=== PATIENT | female | born 1945 | race African-American/Black ===

== ENCOUNTER 2016-09-18 10:45 | Emergency (ER) | payer MEDICARE, OTHER ==
[2016-09-18] MEDS ORDERED: ASPIRIN 81 MG TABLET, CHEWABLE PO ONE (10:59)
--- NOTE | 2016-09-18 11:03 | ER Document Report ---
ED Medical Screen (RME) - General Chief Complaint: Headache Stated Complaint: HEAD PAIN Mode of Arrival: Ambulatory Information source: Patient Notes: 70 y/o F presents to ED c/o fatigue, light headedness, and chest tightness since last night. Reports hx of chf and htn. I have greeted and performed a rapid initial assessment of this patient. A comprehensive ED assessment and evaluation of the patient, analysis of test results and completion of the medical decision making process will be conducted by additional ED providers. TRAVEL OUTSIDE OF THE [place] IN LAST 30 DAYS: No - Related Data Allergies/Adverse Reactions: No Known Allergies Allergy (Verified 09/18/16 10:57) Past Medical History - Social History Chew tobacco use (# tins/day): No Frequency of alcohol use: None Drug Abuse: None - Past Medical History Cardiac Medical History: Reports: Hx Hypertension Renal/ Medical History: Denies: Hx Peritoneal Dialysis Past Surgical History: Reports: Hx Hysterectomy, Hx Orthopedic Surgery - bilateral knee replacement, Hx Tubal Ligation - Immunizations Hx Diphtheria, Pertussis, Tetanus Vaccination: Yes Physical Exam - Vital signs Vitals: Temp Pulse Resp BP Pulse Ox 97.6 F 65 20 163/67 H 100 09/18/16 10:51 09/18/16 10:51 09/18/16 10:51 09/18/16 10:51 09/18/16 10:51 - General General appearance: Appears well, Alert In distress: None - Respiratory Respiratory status: No respiratory distress Breath sounds: Normal - Cardiovascular Rhythm: Regular Pulses: Normal: Radial Normal capillary refill: Yes Course - Vital Signs Vital signs: Temp Pulse Resp BP Pulse Ox 97.6 F 65 20 163/67 H 100 09/18/16 10:51 09/18/16 10:51 09/18/16 10:51 09/18/16 10:51 09/18/16 10:51
[2016-09-18 11:38] LABS: ABSOLUTE BASOPHILS # (AUTO) 0.1 10^3/uL (0.0-0.2); ABSOLUTE EOSINOPHILS # (AUTO) 0.1 10^3/uL (0.0-0.6); ABSOLUTE LYMPHOCYTES (AUTO) 2.2 10^3/uL (0.5-4.7); ABSOLUTE MONOCYTES (AUTO) 0.5 10^3/uL (0.1-1.4); ABSOLUTE NEUT (AUTO) 1.9 10^3/uL (1.7-8.2); BASOPHILS % (AUTO) 1.1 % (0-2); EOSINOPHILS % (AUTO) 2.9 % (0-6); HEMATOCRIT 34.2 % (36.0-47.0); HEMOGLOBIN 11.7 g/dL (12.0-15.5); HGB HCT DIFFERENCE 0.9; MEAN CORPUSCULAR HEMOGLOBIN 33.8 pg (27.0-33.4); MEAN CORPUSCULAR HGB CONC 34.3 g/dL (32.0-36.0); MEAN CORPUSCULAR VOLUME 99 fl (80-97); MONOCYTES % (AUTO) 10.4 % (3-13); RED BLOOD COUNT 3.48 10^6/uL (3.72-5.28); RED CELL DISTRIBUTION WIDTH 13.1 % (11.5-14.0); SEGMENTED NEUTROPHILS % (AUTO) 39.6 % (42-78); WHITE BLOOD COUNT 4.8 10^3/uL (4.0-10.5)
[2016-09-18 11:41] LABS: APPEARANCE,URINE SLIGHTLY-CLOUDY; BILIRUBIN,URINE NEGATIVE (NEGATIVE); GLUCOSE, URINE NEGATIVE (NEGATIVE); KETONES,URINE NEGATIVE (NEGATIVE); LEUKOCYTE ESTERASE,URINE NEGATIVE (NEGATIVE); NITRITE,URINE NEGATIVE (NEGATIVE); PROTEIN,URINE NEGATIVE (NEGATIVE); URINE SPECIFIC GRAVITY 1.012; UROBILINOGEN,URINE NEGATIVE mg/dL (<2.0)
[2016-09-18 11:50] LABS: ALANINE AMINOTRANSFERASE 32 U/L (9-52); ALBUMIN 4.4 g/dL (3.5-5.0); ALKALINE PHOSPHATASE 69 U/L (38-126); ANION GAP 9 (5-19); ASPARTATE AMINO TRANSFERASE 27 U/L (14-36); BILIRUBIN,TOTAL 0.5 mg/dL (0.2-1.3); BLOOD UREA NITROGEN 19 mg/dL (7-20); CALCIUM 10.7 mg/dL (8.4-10.2); CARBON DIOXIDE 30 mmol/L (22-30); CHLORIDE 101 mmol/L (98-107); CREATINE KINASE 61 U/L (30-135); CREATININE RESULT 0.72 mg/dL (0.52-1.25); GLUCOSE 94 mg/dL (75-110); POTASSIUM 4.2 mmol/L (3.6-5.0); SODIUM 140.2 mmol/L (137-145); TOTAL PROTEIN 7.2 g/dL (6.3-8.2)
[2016-09-18 12:00] LABS: CREATINE KINASE MB 0.95 ng/mL (<4.55)
[2016-09-18 12:01] LABS: TROPONIN I < 0.012 ng/mL
--- NOTE | 2016-09-18 14:32 | ER Document Report ---
ED General - General Chief Complaint: Headache Stated Complaint: HEAD PAIN Time seen by provider: 14:28 Mode of Arrival: Ambulatory Information source: Patient Notes: Patient is a pleasant 70-year-old female with a history of hypertension, CHF and syncope in the past who presents to the emergency room after an episode last night of dizziness, near syncope associated with a mild headache. Patient denies any fever, chills, photophobia, neck stiffness, sore throat or chest pain. Patient states she is followed by a personal banking officer that if new [employer] and that she's had some changes in her medicines lately. She denies any dyspnea on exertion or shortness of breath. She states she "saw stars" last night and she thought she was going to faint and was able make it over to the bed. She states she does not feel that it" today. She describes feeling a little dizzy today and having a mild headache. TRAVEL OUTSIDE OF THE [place] IN LAST 30 DAYS: No - HPI Onset: Yesterday Onset/Duration: Gradual Quality of pain: No pain Severity: None Pain Level: Denies Associated symptoms: denies: Chills, Fever Exacerbated by: Denies Relieved by: Denies Similar symptoms previously: Yes Recently seen / treated by doctor: Yes - Related Data Allergies/Adverse Reactions: No Known Allergies Allergy (Verified 09/18/16 10:57) Past Medical History - General Information source: Patient - Social History Smoking Status: Never Smoker Chew tobacco use (# tins/day): No Frequency of alcohol use: None Drug Abuse: None Lives with: Family Family History: Reviewed & Not Pertinent Patient has suicidal ideation: No Patient has homicidal ideation: No - Past Medical History Cardiac Medical History: Reports: Hx Congestive Heart Failure, Hx Hypertension Renal/ Medical History: Denies: Hx Peritoneal Dialysis Past Surgical History: Reports: Hx Hysterectomy, Hx Orthopedic Surgery - bilateral knee replacement, Hx Tubal Ligation - Immunizations Hx Diphtheria, Pertussis, Tetanus Vaccination: Yes Review of Systems - Review of Systems Notes: Review of systems: Constitutional: Denies fever, chills. EENT: Denies ear pain, sinus tenderness, throat pain, throat swelling. Cardiovascular: See H&P. Denies chest pain, palpitations, dyspnea or edema. Respiratory: Denies wheezing, cough, hemoptysis. Abdomen: Denies abdominal pain, nausea, vomiting, diarrhea. Denies BRBPR or melena. Genitourinary: Denies dysuria, pyuria, hematuria, flank pain. Musculoskeletal: denies joint pain or swelling, denies back pain. Neurologic: Denies headache, photophobia, neck stiffness, weakness. Denies loss of bowel or bladder function. Denies saddle anesthesia. Skin: Denies rash, lesions. Physical Exam - Vital signs Vitals: Temp Pulse Resp BP Pulse Ox 97.6 F 65 20 163/67 H 100 09/18/16 10:51 09/18/16 10:51 09/18/16 10:51 09/18/16 10:51 09/18/16 10:51 Notes: Physical exam: GENERAL: 70-year-old female, alert and oriented 3, no acute distress. HEAD: Atraumatic, normocephalic. EYES: Pupils equal round and reactive to light, extraocular movements intact, sclera anicteric, conjunctiva are normal. ENT: TMs normal, nares patent, oropharynx clear without exudates. Moist mucous membranes. NECK: Normal range of motion, supple without lymphadenopathy or JVD. LUNGS: Breath sounds clear to auscultation bilaterally and equal. No wheezes rales or rhonchi. HEART: Regular rate and rhythm without murmurs, rubs or gallops. ABDOMEN: Soft, normoactive bowel sounds. No tenderness to palpation. No guarding, no rebound. No masses appreciated. EXTREMITIES: Normal range of motion, no pitting or edema. No clubbing or cyanosis. NEUROLOGICAL: Cranial nerves II through XII grossly intact. Normal speech, motor 5 over 5, cerebellar grossly intact, reflexes symmetrical. PSYCH: Normal mood, normal affect. SKIN: Warm, Dry, normal turgor, no rashes or lesions noted. Course - Vital Signs Vital signs: Temp Pulse Resp BP Pulse Ox 97.6 F 65 18 112/76 100 09/18/16 10:51 09/18/16 10:51 09/18/16 16:01 09/18/16 16:01 09/18/16 16:01 - Laboratory Result Diagrams: 09/18/16 11:22 09/18/16 11:22 Laboratory results interpreted by me: 09/18/16 09/18/16 09/18/16 11:22 11:22 11:22 RBC 3.48 L Hgb 11.7 L Hct 34.2 L MCV 99 H MCH 33.8 H Seg Neutrophils % 39.6 L Lymphocytes % 46.0 H Calcium 10.7 H Urine Ascorbic Acid 40 H - Diagnostic Test Radiology reviewed: Image reviewed, Reports reviewed - Chest x-ray shows no infiltrates - EKG Interpretation by Me Rate: Normal Rhythm: NSR - EKG shows normal sinus rhythm with a ventricular rate of 61, there is a left anterior hemiblock with poor R-wave progression. There is no acute ST-T wave changes. The ECG is unchanged compared with EKG from 2014. Discharge - Discharge Clinical Impression: dizziness/near syncope Condition: Stable Disposition: HOME, SELF-CARE Additional Instructions: Recommendations: Continue current medicines. Wait yourself everyday at the same time: Keeping good tabs on the way as this is a good indicator of fluid status. You are on a diuretic for congestive heart failure. Weight gain is often times canvas products sales representative of fluid buildup and can make the congestive heart failure worse and he may be short of breath with exertion. Weight loss is sometimes canvas products sales representative of mild dehydration and can lead to increased dizziness or feeling faint when you stand up. Bring a copy of today's labs with you to your personal banking officer. Return to the emergency room for any chest pain, shortness of breath or any concerns he getting worse. Referrals: SARAH JOHNSON PA-C [Primary Care Provider] - Follow up as needed
[2016-09-18 16:34] VITALS: BP 112/76
--- NOTE | 2016-09-18 16:35 | EKG REPORT ---
SEVERITY:- ABNORMAL ECG - SINUS RHYTHM FIRST DEGREE AV BLOCK LEFT BUNDLE BRANCH BLOCK : Confirmed by: Harriet Guerra MD 18-Sep-2016 16:35:00
== END 2016-09-18 16:20 | disposition home or self-care (01) ==
LOC: ER 10:45
DX: R55 Syncope and collapse (principal); R51 Headache; I10 Essential (primary) hypertension; Z86.79 Personal history of other diseases of the circulatory system
CPT/HCPCS: 93005; 36415; 99284; 82553; 82550; 85025; 80053; 81001; 84484; 71020; 93010; A9270

== ENCOUNTER → 2016-11-21 | Outpatient (CLI) | payer MEDICARE, OTHER | LOC: WI 07:06 | PROVIDERS: ATTEND Physician Assistant | DX: Z12.31 Encounter for screening mammogram for malignant neoplasm of breast (principal) | CPT/HCPCS: 77067; G0202 ==

== ENCOUNTER 2017-03-17 16:12 | Emergency (ER) | payer MEDICARE ==
[2017-03-17 17:04] VITALS: BP 141/79
--- NOTE | 2017-03-17 17:14 | ER Document Report ---
ED Respiratory Problem - General Chief Complaint: Shortness Of Breath Stated Complaint: SHORTNESS OF BREATH AND DIZZINESS Time Seen by Provider: 03/17/17 16:22 Mode of Arrival: Ambulatory Information source: Patient TRAVEL OUTSIDE OF THE [place] IN LAST 30 DAYS: No - HPI Patient complains to provider of: Short of breath Onset: Other - 2-3 days Duration: Worse/persistent Context: Hx CHF Short of Breath: Mild Associated symptoms: Extertional dyspnea Similar symptoms previously: Yes Recently seen / treated by doctor: No Notes: Patient is a 71-year-old female who presents to the emergency room complaining of 2-3 day history of lightheadedness with sensation of "film over my eyes", dyspnea on exertion, she denies any chest pain, no cough, cold or congestion, no fever or chills, no nausea, vomiting or diarrhea, reports a history of similar symptoms a few months ago and states that she was evaluated in the emergency room and discharged with no abnormal findings - Related Data Allergies/Adverse Reactions: No Known Allergies Allergy (Verified 09/18/16 10:57) Past Medical History - General Information source: Patient - Social History Smoking Status: Former Smoker Family History: Reviewed & Not Pertinent - Past Medical History Cardiac Medical History: Reports: Hx Congestive Heart Failure, Hx Heart Attack, Hx Hypertension Renal/ Medical History: Denies: Hx Peritoneal Dialysis Past Surgical History: Reports: Hx Cardiac Catheterization, Hx Hysterectomy, Hx Orthopedic Surgery - bilateral knee replacement, Hx Tubal Ligation - Immunizations Hx Diphtheria, Pertussis, Tetanus Vaccination: Yes Review of Systems - Review of Systems Constitutional: No symptoms reported EENT: No symptoms reported Cardiovascular: See HPI Respiratory: See HPI Gastrointestinal: No symptoms reported Genitourinary: No symptoms reported Female Genitourinary: No symptoms reported Musculoskeletal: No symptoms reported Skin: No symptoms reported Hematologic/Lymphatic: No symptoms reported Neurological/Psychological: No symptoms reported -: Yes All other systems reviewed and negative Physical Exam - Vital signs Vitals: Resp 13 03/17/17 16:29 Interpretation: Normal - General General appearance: Appears well, Alert - HEENT Head: Normocephalic, Atraumatic Eyes: Normal Pupils: PERRL - Respiratory Respiratory status: No respiratory distress Chest status: Nontender Breath sounds: Normal Chest palpation: Normal - Cardiovascular Rhythm: Regular Heart sounds: Normal auscultation Murmur: No - Abdominal Inspection: Obese Distension: No distension Bowel sounds: Normal Tenderness: Nontender Organomegaly: No organomegaly - Back Back: Normal, Nontender - Extremities General upper extremity: Normal inspection, Nontender, Normal color, Normal ROM , Normal temperature General lower extremity: Normal inspection, Nontender, Normal color, Normal ROM , Normal temperature, Normal weight bearing. No: Jhonathan's sign - Neurological Neuro grossly intact: Yes Cognition: Normal Orientation: AAOx4 Porter Coma Scale Eye Opening: Spontaneous Porter Coma Scale Verbal: Oriented Porter Coma Scale Motor: Obeys Commands Porter Coma Scale Total: 15 Speech: Normal Motor strength normal: LUE, RUE, LLE, RLE Sensory: Normal - Psychological Associated symptoms: Normal affect, Normal mood - Skin Skin Temperature: Warm Skin Moisture: Dry Skin Color: Normal Course - Re-evaluation Re-evalutation: 03/17/17 18:48 Lab and imaging findings were discussed with patient at bedside which are unremarkable, EKG is unchanged from previous one, patient's symptoms have been going on for the past few days, without any abnormalities on labs are in and patient will be discharged with instructions to follow-up with her primary care provider 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 return if any additional concerns, patient acknowledges understanding and agreement with this plan - Vital Signs Vital signs: Temp Pulse Resp BP Pulse Ox 97.7 F 59 L 15 141/79 H 100 03/17/17 16:52 03/17/17 16:52 03/17/17 17:01 03/17/17 17:01 03/17/17 17:01 - Laboratory Result Diagrams: 03/17/17 16:45 03/17/17 16:45 Laboratory results interpreted by me: 03/17/17 16:45 WBC 3.9 L RBC 3.56 L Hct 35.5 L MCV 100 H MCH 33.9 H Seg Neutrophils % 37.1 L Lymphocytes % 49.4 H Absolute Neutrophils 1.5 L - Diagnostic Test Radiology reviewed: Image reviewed, Reports reviewed - EKG Interpretation by Me EKG shows normal: Sinus rhythm Rate: Normal Rhythm: NSR [place]/QRS: LBBB, IVCD When compared to previous EKG there are: No significant change Discharge - Discharge Clinical Impression: Shortness of breath Condition: Stable Disposition: HOME, SELF-CARE Additional Instructions: Follow up with your primary care provider in one to 2 days. Return to the emergency room immediately if symptoms worsen or any additional concerns. Referrals: SARAH JOHNSON PA-C [Primary Care Provider] - Follow up as needed
[2017-03-17 17:21] LABS: ABSOLUTE EOSINOPHILS # (AUTO) 0.1 10^3/uL (0.0-0.6); ABSOLUTE LYMPHOCYTES (AUTO) 1.9 10^3/uL (0.5-4.7); ABSOLUTE MONOCYTES (AUTO) 0.4 10^3/uL (0.1-1.4); ABSOLUTE NEUT (AUTO) 1.5 10^3/uL (1.7-8.2); BASOPHILS % (AUTO) 1.3 % (0-2); EOSINOPHILS % (AUTO) 2.7 % (0-6); HEMATOCRIT 35.5 % (36.0-47.0); HEMOGLOBIN 12.1 g/dL (12.0-15.5); HGB HCT DIFFERENCE 0.8; LYMPHOCYTES % (AUTO) 49.4 % (13-45); MEAN CORPUSCULAR HEMOGLOBIN 33.9 pg (27.0-33.4); MEAN CORPUSCULAR HGB CONC 33.9 g/dL (32.0-36.0); MEAN CORPUSCULAR VOLUME 100 fl (80-97); MONOCYTES % (AUTO) 9.5 % (3-13); RED BLOOD COUNT 3.56 10^6/uL (3.72-5.28); SEGMENTED NEUTROPHILS % (AUTO) 37.1 % (42-78); WHITE BLOOD COUNT 3.9 10^3/uL (4.0-10.5)
[2017-03-17 17:27] LABS: APPEARANCE,URINE CLEAR; BILIRUBIN,URINE NEGATIVE (NEGATIVE); GLUCOSE, URINE NEGATIVE (NEGATIVE); KETONES,URINE NEGATIVE (NEGATIVE); LEUKOCYTE ESTERASE,URINE NEGATIVE (NEGATIVE); NITRITE,URINE NEGATIVE (NEGATIVE); PROTEIN,URINE NEGATIVE (NEGATIVE); URINE SPECIFIC GRAVITY 1.006; UROBILINOGEN,URINE NEGATIVE mg/dL (<2.0)
--- NOTE | 2017-03-17 17:27 | RADIOLOGY REPORT (SQ) ---
EXAM DESCRIPTION: CHEST PA/LAT COMPLETED DATE/TIME: 03/17/2017 5:16 pm REASON FOR STUDY: db COMPARISON: 09/18/2016 EXAM PARAMETERS: NUMBER OF VIEWS: two views TECHNIQUE: Digital Frontal and Lateral radiographic views of the chest acquired. RADIATION DOSE: NA LIMITATIONS: none FINDINGS: LUNGS AND PLEURA: No new opacities, masses or pneumothorax. No pleural effusion. MEDIASTINUM AND HILAR STRUCTURES: No masses or contour abnormalities. HEART AND VASCULAR STRUCTURES: Heart stable in size. No evidence for failure. BONES: No acute findings. HARDWARE: None in the chest. OTHER: No other significant finding. IMPRESSION: NO ACUTE CARDIOPULMONARY BY CHRONIC UNCHANGED FROM PRIOR STUDY. TECHNICAL DOCUMENTATION: JOB ID: [id number] [employer]- All Rights Reserved
[2017-03-17 17:37] LABS: ALANINE AMINOTRANSFERASE 31 U/L (9-52); ALBUMIN 4.2 g/dL (3.5-5.0); ALKALINE PHOSPHATASE 70 U/L (38-126); ANION GAP 7 (5-19); ASPARTATE AMINO TRANSFERASE 23 U/L (14-36); BILIRUBIN,DIRECT 0.4 mg/dL (0.0-0.4); BILIRUBIN,TOTAL 0.6 mg/dL (0.2-1.3); BLOOD UREA NITROGEN 16 mg/dL (7-20); CALCIUM 10.2 mg/dL (8.4-10.2); CARBON DIOXIDE 30 mmol/L (22-30); CHLORIDE 103 mmol/L (98-107); CREATINE KINASE 47 U/L (30-135); CREATININE RESULT 0.63 mg/dL (0.52-1.25); GLUCOSE 86 mg/dL (75-110); SODIUM 140.3 mmol/L (137-145); TOTAL PROTEIN 7.3 g/dL (6.3-8.2)
[2017-03-17 17:46] LABS: CREATINE KINASE MB 0.43 ng/mL (<4.55)
--- NOTE | 2017-03-17 21:11 | EKG REPORT ---
SEVERITY:- ABNORMAL ECG - SINUS RHYTHM FIRST DEGREE AV BLOCK NONSPECIFIC IVCD WITH LAD LEFT VENTRICULAR HYPERTROPHY : Confirmed by: Last Atwood 17-Mar-2017 21:10:27
== END 2017-03-17 18:59 | disposition home or self-care (01) ==
LOC: ER 16:12
DX: R06.02 Shortness of breath (principal); R06.09 Other forms of dyspnea; R42 Dizziness and giddiness; I44.7 Left bundle-branch block, unspecified; I25.2 Old myocardial infarction; I10 Essential (primary) hypertension
CPT/HCPCS: 36415; 71020; 80053; 81001; 82550; 82553; 83880; 84484; 85025; 93005; 93010; 99285

== ENCOUNTER → 2017-11-02 | Outpatient (CLI) | payer MEDICARE, OTHER ==
--- NOTE | 2017-11-03 08:15 | WOMENS IMAGING REPORT ---
EXAM DESCRIPTION: BILAT SCREENING MAMMO W/CAD COMPLETED DATE/TIME: 11/02/2017 8:32 am REASON FOR STUDY: SCREENING MAMMO Z12.31 ENCNTR SCREEN MAMMOGRAM FOR MALIGNANT NEOPLASM OF ERROL COMPARISON: Multiple since 2008 TECHNIQUE: Standard craniocaudal and mediolateral oblique views of each breast recorded using digita l acquisition. LIMITATIONS: None. FINDINGS: Findings present which are benign by mammographic criteria. No suspicious masses, calcifi cations or architectural distortion. Pertinent benign findings: Old far right upper outer quadrant scar with biopsy clip, unchanged. Read with the assistance of CAD. .[facility] - R2 Cenova Version 1.3 .[facility] - R2 Cenova Version 1.3 .[facility] - R2 Cenova Version 2.4 .[facility] [place] R2 Cenova Version 2.4 .[facility] - R2 Payroll And Benefits Assistant Version 9.2 Benign mammographic findings may include one or more of the following: Smooth masses, popcorn/rim/co arse calcifications, asymmetries, post-procedure changes, and lesions with long-standing stability. IMPRESSION: BENIGN MAMMOGRAPHIC FINDINGS. BIRADS 2 BREAST DENSITY: a. The breasts are almost entirely fatty. BIRAD: 2 BENIGN FINDING(S) RECOMMENDATION: ROUTINE SCREENING Please continue yearly screening in October 2018. Consider bilateral screening tomosynthesis COMMENT: The patient has been notified of the results by letter per SA requirements. Additional no tification policies are in place for contacting patient with suspicious or incomplete findings. Quality ID #225: The [employer] recommends an annual screening mammogram for women aged 40 years or over. This facility utilizes a reminder system to ensure that all patients receive reminder letters, and/or direct phone calls for appointments. This includes reminders for routine scr eening mammograms, diagnostic mammograms, or other Breast Imaging Interventions when appropriate. Th is patient will be placed in the appropriate reminder system. The [employer] (ACR) has developed recommendations for screening MRI of the breast s in certain patient populations, to be used in conjunction with mammography. Breast MRI surveillanc e may be appropriate for women with more than 20% lifetime risk of developing breast cancer as deter mined by genetic testing, significant family history of the disease, or history of mantle radiation f or Hodgkins Disease. ACR Practice Guidelines 2008. TECHNICAL DOCUMENTATION: FINDING NUMBER: (1) ASSESSMENT: (1) JOB ID: [id number] [employer]- All Rights Reserved Reading location - IP/workstation name: [email or web address]
== END ==
LOC: WI 07:59
PROVIDERS: ATTEND Physician Assistant Medical
DX: Z12.31 Encounter for screening mammogram for malignant neoplasm of breast (principal)
CPT/HCPCS: 77067

== ENCOUNTER → 2018-04-06 | Outpatient (CLI) | payer MEDICARE ==
--- NOTE | 2018-04-07 09:35 | RADIOLOGY REPORT (SQ) ---
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 RADIONUCLIDE AND DOSE: 9.5 mCi F18 FDG The route of agent administration: Intravenous FASTING BLOOD SUGAR: 103 mg/dl CONTRAST TYPE AND DOSE: No CT contrast given. TECHNIQUE: Blood glucose level was verified. Above dose of FDG was injected intravenously. 2-D seg mented attenuation correction images were obtained from the base of the skull to the midthighs. Nonc ontrast CT images were obtained for attenuation correction and fusion with emission images. CT image s were performed without oral or intravenous contrast and are not sensitive for parenchymal lesions. A series of overlapping emission PET images were obtained. Images reviewed and manipulated at [facility] work station by the radiologist. Images stored on PACS. LIMITATIONS: None. FINDINGS: HEAD AND NECK: No areas of abnormal metabolic activity in the soft tissues of the head and neck. CHEST: No areas of abnormal metabolic activity in the chest. ABDOMEN AND PELVIS: No areas of abnormal metabolic activity in the abdomen or pelvis. Expected physi ologic activity is present in the genitourinary system and bowel. PROXIMAL LOWER EXTREMITIES: No areas of abnormal metabolic activity in the soft tissues of the lower extremities. BONES: No significant abnormal metabolic activity in the visualized skeleton. ADDITIONAL CT FINDINGS: Non hypermetabolic expansile lesion left S1 neural foramen previously imaged with CT and MRI at outside facility. Calcified uterine fibroids. OTHER: No other significant findings. IMPRESSION: Non hypermetabolic left sacral lesion. TECHNICAL DOCUMENTATION: JOB ID: [id number]- All Rights Reserved Reading location - IP/workstation name: [email or web address]
== END ==
LOC: RAD 17:33
PROVIDERS: ATTEND Internal Medicine
DX: C41.9 Malignant neoplasm of bone and articular cartilage, unspecified (principal)
CPT/HCPCS: 78815; A9552

== ENCOUNTER → 2018-11-24 | Outpatient (CLI) | payer MEDICARE, MEDICAID ==
--- NOTE | 2018-11-24 14:30 | WOMENS IMAGING REPORT ---
EXAM DESCRIPTION: 3D SCREENING MAMMO BILAT COMPLETED DATE/TIME: 11/24/2018 10:23 am REASON FOR STUDY: Z12.31 ROUTINE 3D BILATERAL SCREENING Z12.31 ENCNTR SCREEN MAMMOGRAM FOR MALIGNAN T NEOPLASM OF ERROL COMPARISON: Multiple since 2008 TECHNIQUE: Standard craniocaudal and mediolateral oblique views of each breast recorded using digita l acquisition and breast tomosynthesis. LIMITATIONS: None. FINDINGS: Findings present which are benign by mammographic criteria. No suspicious masses, calcific ations or architectural distortion. Pertinent benign findings: Old biopsy clip right axilla/tail of Mccoy. Stable benign bilateral manny st parenchymal calcifications. Read with the assistance of CAD. .[facility] - R2 Engineer Process Version 9.2 Benign mammographic findings may include one or more of the following: Smooth masses, popcorn/rim/coa rse calcifications, asymmetries, post-procedure changes, and lesions with long-standing stability. IMPRESSION: BENIGN MAMMOGRAPHIC FINDINGS. BIRADS 2 BREAST DENSITY: a. The breasts are almost entirely fatty. BIRAD: 2 BENIGN FINDING(S) RECOMMENDATION: ROUTINE SCREENING COMMENT: The patient has been notified of the results by letter per SA requirements. Additional no tification policies are in place for contacting patient with suspicious or incomplete findings. Quality ID #225: The [employer] recommends an annual screening mammogram for women aged 40 years or over. This facility utilizes a reminder system to ensure that all patients receive reminder letters, and/or direct phone calls for appointments. This includes reminders for routine scr eening mammograms, diagnostic mammograms, or other Breast Imaging Interventions when appropriate. Th is patient will be placed in the appropriate reminder system. TECHNICAL DOCUMENTATION: FINDING NUMBER: (1) ASSESSMENT: (1) JOB ID: [id number] [employer]- All Rights Reserved Reading location - IP/workstation name: [email or web address]-
== END ==
LOC: WI 09:54
PROVIDERS: ATTEND Physician Assistant
DX: Z12.31 Encounter for screening mammogram for malignant neoplasm of breast (principal)
CPT/HCPCS: 77063; 77067

== ENCOUNTER 2019-03-02 15:30 | Observation (INO) | payer MEDICARE, MEDICAID ==
--- NOTE | 2019-03-02 16:03 | ER Document Report ---
ED Medical Screen (RME) - General Chief Complaint: Chest Pain Stated Complaint: CHEST PAIN Time Seen by Provider: 03/02/19 15:59 Primary Care Provider: SARAH JOHNSON PA-C [Primary Care Provider] - Follow up as needed TRAVEL OUTSIDE OF THE [place]. IN LAST 30 DAYS: No - HPI Notes: 03/02/19 16:02 Patient is a 73-year-old female with a history of hypertension and obesity who presents complaining of having dull chest pain primarily when she ambulates as well as increased swelling to her legs bilaterally and increased dyspnea on exertion over the past week. Patient states that she really feels that when she is trying to do steps. Her discomfort does not radiate. She is otherwise able to eat and drink without the [place]. She is urinating normally. Denies drug allergies. She is not on any blood thinning medications. Denies any prolonged immobilization, distance travel, recent surgery/trauma, personal cancer history, hormone use, smoking, or previous DVT/PE. Denies DUFFY, fever, neck pain, URI, n/v/d, Abd pain, dysuria, back pain, or rash. I have treated and performed a rapid initial assessment of this patient. A comprehensive ED assessment and evaluation of the patient, analysis of test results and completion of medical decision making process will be conducted by additional ED providers. PHYSICAL EXAMINATION: GENERAL: Well-appearing, well-nourished and in no acute distress. A&Ox4. Answers questions appropriately. LUNGS: diminished at the base b/l. no retractions HEART: Regular rate and rhythm. Extremities: 1-2+ pitting edema to the b/l LE's (primarily 2+ to the ankles). NEUROLOGICAL: Normal speech. PSYCH: Normal mood, normal affect. - Related Data Allergies/Adverse Reactions: No Known Allergies Allergy (Verified 03/02/19 15:33) Past Medical History - Past Medical History Cardiac Medical History: Reports: Hx Congestive Heart Failure, Hx Heart Attack, Hx Hypertension Renal/ Medical History: Denies: Hx Peritoneal Dialysis Past Surgical History: Reports: Hx Cardiac Catheterization, Hx Hysterectomy, Hx Orthopedic Surgery - bilateral knee replacement, Hx Tubal Ligation - Immunizations Hx Diphtheria, Pertussis, Tetanus Vaccination: Yes Physical Exam - Vital signs Vitals: Temp Pulse Resp BP Pulse Ox 98.1 F 72 18 129/70 H 96 03/02/19 15:56 03/02/19 15:56 03/02/19 15:56 03/02/19 15:56 03/02/19 15:56 Course - Vital Signs Vital signs: Temp Pulse Resp BP Pulse Ox 98.1 F 72 18 129/70 H 96 03/02/19 15:56 03/02/19 15:56 03/02/19 15:56 03/02/19 15:56 03/02/19 15:56 Doctor's Discharge - Discharge Referrals: SARAH JOHNSON PA-C [Primary Care Provider] - Follow up as needed
--- NOTE | 2019-03-02 16:28 | RADIOLOGY REPORT (SQ) ---
EXAM DESCRIPTION: CHEST 2 VIEWS COMPLETED DATE/TIME: 03/02/2019 4:18 pm REASON FOR STUDY: CP COMPARISON: 03/17/2017 EXAM PARAMETERS: NUMBER OF VIEWS: two views TECHNIQUE: Digital Frontal and Lateral radiographic views of the chest acquired. RADIATION DOSE: NA LIMITATIONS: none FINDINGS: LUNGS AND PLEURA: No opacities, masses or pneumothorax. No pleural effusion. MEDIASTINUM AND HILAR STRUCTURES: No masses or contour abnormalities. HEART AND VASCULAR STRUCTURES: The heart size is borderline. There is no pulmonary edema. BONES: No acute findings. HARDWARE: None in the chest. OTHER: No other significant finding. IMPRESSION: Borderline cardiomegaly without pulmonary edema. TECHNICAL DOCUMENTATION: JOB ID: [id number] [employer]- All Rights Reserved Reading location - IP/workstation name: [email or web address]
[2019-03-02 16:47] LABS: ABSOLUTE EOSINOPHILS # (AUTO) 0.1 10^3/uL (0.0-0.6); ABSOLUTE LYMPHOCYTES (AUTO) 1.7 10^3/uL (0.5-4.7); ABSOLUTE MONOCYTES (AUTO) 0.3 10^3/uL (0.1-1.4); ABSOLUTE NEUT (AUTO) 1.6 10^3/uL (1.7-8.2); BASOPHILS % (AUTO) 1.1 % (0-2); EOSINOPHILS % (AUTO) 2.4 % (0-6); HEMATOCRIT 36.2 % (36.0-47.0); HEMOGLOBIN 12.2 g/dL (12.0-15.5); LYMPHOCYTES % (AUTO) 43.8 % (13-45); MEAN CORPUSCULAR HEMOGLOBIN 33.4 pg (27.0-33.4); MEAN CORPUSCULAR HGB CONC 33.7 g/dL (32.0-36.0); MEAN CORPUSCULAR VOLUME 99 fl (80-97); MONOCYTES % (AUTO) 9.1 % (3-13); PLATELET COUNT 253 10^3/uL (150-450); RED BLOOD COUNT 3.65 10^6/uL (3.72-5.28); SEGMENTED NEUTROPHILS % (AUTO) 43.6 % (42-78); TOTAL CELLS COUNTED % (AUTO) 100 %; WHITE BLOOD COUNT 3.8 10^3/uL (4.0-10.5)
[2019-03-02] MEDS ORDERED: ASPIRIN 325 MG TABLET PO ONE (16:57)
[2019-03-02 17:10] LABS: INTERNATIONAL RATION (INR) 1.04; PROTHROMBIN TIME 13.6 SEC (11.4-15.4)
[2019-03-02 17:11] LABS: PARTIAL THROMBOPLASTIN TIME 33.7 SEC (23.5-35.8)
[2019-03-02 17:15] LABS: NT PRO BNP 41 pg/mL (5-900)
[2019-03-02 17:18] LABS: TROPONIN I < 0.012 ng/mL
[2019-03-02 17:26] LABS: ALBUMIN 4.3 g/dL (3.5-5.0); ALKALINE PHOSPHATASE 67 U/L (38-126); ANION GAP 9 (5-19); ASPARTATE AMINO TRANSFERASE 23 U/L (14-36); BILIRUBIN,DIRECT 0.2 mg/dL (0.0-0.4); BILIRUBIN,TOTAL 0.4 mg/dL (0.2-1.3); BLOOD UREA NITROGEN 17 mg/dL (7-20); CALCIUM 10.2 mg/dL (8.4-10.2); CARBON DIOXIDE 28 mmol/L (22-30); CHLORIDE 103 mmol/L (98-107); GLUCOSE 97 mg/dL (75-110); POTASSIUM 4.3 mmol/L (3.6-5.0); TOTAL PROTEIN 7.3 g/dL (6.3-8.2)
--- NOTE | 2019-03-02 17:39 | ER Document Report ---
ED General - General Chief Complaint: Chest Pain Stated Complaint: CHEST PAIN Time Seen by Provider: 03/02/19 15:59 TRAVEL OUTSIDE OF THE [place] IN LAST 30 DAYS: No - HPI Notes: 73-year-old female with history of hypertension, obesity, congestive heart failure to the emergency department with complaints of progressively worsening chest pain on exertion with dyspnea. She states that she has been noticing this as she walks from her car to buildings. She states prior to this past week she has been able to do that without any problem. She states that it takes her several minutes for her to catch her breath and for the chest pain to dissipate. She states that she also gets acutely nauseated and diaphoretic when she is experiencing the chest pain with shortness of breath. She states that she has a history of CHF and "may have had a small heart attack at one point". She states that she was at [facility] about 3 to 4 years ago and had a clean cardiac cath. She states she has not had a stress test since. She is not on a blood thinner. She has not been taking aspirin daily. She does not smoke. There is family history of heart attacks on her mother side. She states that her mother at 65 with heart complications. Patient does state that she has been having some worsening bilateral leg swelling. She states that she has been taking her "water pills" from her physician every day. She states that when she was diagnosed with CHF before that she did not have chest pain with it. - Related Data Allergies/Adverse Reactions: No Known Allergies Allergy (Verified 03/02/19 15:33) Past Medical History - General Information source: Patient - Social History Smoking Status: Never Smoker Frequency of alcohol use: None Drug Abuse: None Family History: Reviewed & Not Pertinent Patient has suicidal ideation: No Patient has homicidal ideation: No - Past Medical History Cardiac Medical History: Reports: Hx Congestive Heart Failure, Hx Heart Attack, Hx Hypertension Renal/ Medical History: Denies: Hx Peritoneal Dialysis Past Surgical History: Reports: Hx Cardiac Catheterization, Hx Hysterectomy, Hx Orthopedic Surgery - bilateral knee replacement, Hx Tubal Ligation - Immunizations Hx Diphtheria, Pertussis, Tetanus Vaccination: Yes Review of Systems - Review of Systems Constitutional: denies: Chills, Fever EENT: No symptoms reported Cardiovascular: Chest pain, Dyspnea, Lightheaded, Edema. denies: Palpitations, Orthopnea, Syncope, Dizziness Physical Exam - Vital signs Vitals: Temp Pulse Resp BP Pulse Ox 98.1 F 72 18 129/70 H 96 03/02/19 15:56 03/02/19 15:56 03/02/19 15:56 03/02/19 15:56 03/02/19 15:56 Interpretation: Normal - General General appearance: Appears well, Alert In distress: None Notes: Morbidly obese - HEENT Head: Normocephalic, Atraumatic Eyes: Normal Pupils: PERRL - Respiratory Respiratory status: No respiratory distress Chest status: Nontender Breath sounds: Normal. No: Rales, Rhonchi, Stridor, Wheezing Chest palpation: Normal - Cardiovascular Notes: Bilateral 1-2+ pitting edema to lower extremities - Abdominal Inspection: Normal Distension: No distension Bowel sounds: Normal Tenderness: Nontender Organomegaly: No organomegaly - Back Back: Normal, Nontender - Neurological Neuro grossly intact: Yes Cognition: Normal Orientation: AAOx4 [place] Coma Scale Eye Opening: Spontaneous [place] Coma Scale Verbal: Oriented [place] Coma Scale Motor: Obeys Commands Gustavo Coma Scale Total: 15 Speech: Normal Motor strength normal: LUE, RUE, LLE, RLE Sensory: Normal - Psychological Associated symptoms: Normal affect, Normal mood - Skin Skin Temperature: Warm Skin Moisture: Dry Skin Color: Normal Course - Re-evaluation Re-evalutation: 03/02/19 Patient has a heart score of 4. She is concerning history for chest pain. Discussed with ER attending, Dr. Pack, and he agrees with the plan for admission. Discussed patient with physician branch assistant, Mari, and he agrees with plan for admission. He is aware patient's heart score as well as patient's history of present illness he is aware of unchanging EKG from prior he is aware first initial troponin is negative. He is aware of chest x-ray with cardiomegaly but no acute pulmonary edema. He is aware of aspirin given to patient. He is aware that patient is currently chest pain-free. Impression: Chest pain with exertional dyspnea, diaphoresis, nausea. Patient has heart score of 4 will need further trending of her troponins and further management for chest pain. Hospitalist team is excepted her onto their service. Patient agrees with the plan for admission. - Vital Signs Vital signs: Temp Pulse Resp BP Pulse Ox 98.1 F 72 15 115/67 98 03/02/19 15:56 03/02/19 15:56 03/02/19 17:01 03/02/19 17:00 03/02/19 17:01 - Laboratory Result Diagrams: 03/02/19 16:30 03/02/19 16:30 Laboratory results interpreted by me: 03/02/19 16:30 WBC 3.8 L RBC 3.65 L MCV 99 H Absolute Neutrophils 1.6 L - Diagnostic Test Radiology reviewed: Image reviewed, Reports reviewed - EKG Interpretation by Me EKG shows normal: Sinus rhythm Rate: Normal When compared to previous EKG there are: No significant change Additional EKG results interpreted by me: 03/02/19 No STEMI. First-degree AV block. LVH. There are no significant changes from prior on 03/17/2017 Discharge - Discharge Clinical Impression: Dyspnea on exertion Chest pain Qualifiers: Chest pain type: unspecified Qualified Code(s): R07.9 - Chest pain, unspecified Condition: Stable Disposition: ADMITTED INPATIENT Admitting Provider: Sen (Hospitalist) Unit Admitted: Telemetry
--- NOTE | 2019-03-02 17:40 | EKG REPORT ---
SEVERITY:- ABNORMAL ECG - SINUS RHYTHM FIRST DEGREE AV BLOCK LEFT BUNDLE BRANCH BLOCK : Confirmed by: Justus Basilio MD 02-Mar-2019 17:40:08
[2019-03-02] MEDS ORDERED: NITROGLYCERIN 0.4 MG/TAB 25 TAB/BOTTLE SL PRN (18:14)
[2019-03-02] MEDS ORDERED: MAG HYDROX/AL HYDROX/SIMETH SUSP 30 ML UDCUP PO PRN (18:14)
[2019-03-02] MEDS ORDERED: ACETAMINOPHEN 325 MG TABLET PO PRN (18:14)
[2019-03-02] MEDS ORDERED: ONDANSETRON HCL INJ/PF 4 MG/2 ML SDV IV PRN (18:14)
[2019-03-02] MEDS ORDERED: 1/2 NORMAL SALINE 1,000 ML IV PRN (18:14)
--- NOTE | 2019-03-02 18:44 | Progress Note Acknowledgement ---
Progress Note Acknowledgement Progess Note Acknowledgement: I, the undersigned member of the medical staff with appropriate privileges and with supervisory authority over [ PAC ], a dependent practice allied health professional, acknowledge that I have reviewed the progress notes entered on this patient, and in my professional judgment believe that the assessment made and/or any care evidenced was appropriate
--- NOTE | 2019-03-02 18:52 | PDOC H&P ---
History of Present Illness Admission Date/PCP: SARAH JOHNSON PA-C 03/02/2019 patient is admitted for chest pain. She states she has had it for a week now will come and go and is not really pain is more of a "ache" patient states that started over a week ago when she would just get short of breath with walking. Patient's friend who is in the room states is been going on longer than a week. Patient complains of: Chest pain over a week and duration. Patient also complains of some shortness of breath with exertion History of Present Illness: SARAH MONTOYA is a 73 year old female Past Medical History Cardiac Medical History: Reports: Congestive Heart Failure, Myocardial Infarction, Hypertension Pulmonary Medical History: Reports: None Past Surgical History Past Surgical History: Reports: Cardiac Catheterization, Hysterectomy, Orthopedic Surgery - bilateral knee replacement, Tubal Ligation Social History Smoking Status: Never Smoker Frequency of Alcohol Use: None Hx Recreational Drug Use: No Hx Prescription Drug Abuse: No Family History Family History: Reviewed & Not Pertinent Parental Family History Reviewed: No Children Family History Reviewed: No Sibling(s) Family History Reviewed.: No Medication/Allergy Home Medications: Celecoxib [Celebrex 200 mg Capsule] 200 mg PO BIDP PRN 07/16/14 Furosemide [Lasix 20 mg Tablet] 20 mg PO DAILYP PRN 07/16/14 Potassium Chloride 10 meq PO DAILYP PRN 07/16/14 Pregabalin [Lyrica 100 mg Capsule] 100 mg PO TID 07/16/14 Valsartan/Hydrochlorothiazide [Diovan Hct 160-12.5 mg Tab] 1 tab PO DAILY 09/26/14 Oxycodone HCl/Acetaminophen [Percocet 5-325 mg Tablet] 1 tab PO Q4H PRN #10 tablet 01/02/15 Allergies/Adverse Reactions: No Known Allergies Allergy (Verified 03/02/19 15:33) Review of Systems Constitutional: ABSENT: chills, fever(s), headache(s), weight gain, weight loss Eyes: ABSENT: visual disturbances Cardiovascular: PRESENT: chest pain, dyspnea on exertion Respiratory: ABSENT: cough, hemoptysis Gastrointestinal: ABSENT: abdominal pain, constipation, diarrhea, hematemesis, hematochezia, nausea, vomiting Neurological: ABSENT: abnormal gait, abnormal speech, confusion, dizziness, focal weakness, syncope Psychiatric: ABSENT: anxiety, depression, homidical ideation, suicidal ideation Physical Exam Vital Signs: Temp Pulse Resp BP Pulse Ox 98.1 F 72 15 115/67 98 03/02/19 15:56 03/02/19 15:56 03/02/19 17:01 03/02/19 17:00 03/02/19 17:01 Intake & Output 03/01/19 03/02/19 03/03/19 06:59 06:59 06:59 Weight 127.2 kg General appearance: PRESENT: no acute distress, well-developed, well-nourished, other - Patient has been pain-free now for over an hour Respiratory exam: PRESENT: clear to auscultation mony. ABSENT: rales, rhonchi, wheezes Cardiovascular exam: PRESENT: RRR. ABSENT: diastolic murmur, rubs, systolic murmur GI/Abdominal exam: PRESENT: normal bowel sounds, soft, other - Obese. ABSENT: distended, guarding, mass, organolmegaly, rebound, tenderness Neurological exam: PRESENT: alert, awake, oriented to person, oriented to place, oriented to time, oriented to situation, CN II-XII grossly intact. ABSENT: motor sensory deficit Psychiatric exam: PRESENT: appropriate affect, normal mood. ABSENT: homicidal ideation, suicidal ideation Results Laboratory Results: 03/02/19 16:30 03/02/19 16:30 03/02/19 03/02/19 16:30 16:30 WBC 3.8 L RBC 3.65 L Hgb 12.2 Hct 36.2 MCV 99 H MCH 33.4 MCHC 33.7 RDW 14.0 Plt Count 253 Seg Neutrophils % 43.6 Lymphocytes % 43.8 Monocytes % 9.1 Eosinophils % 2.4 Basophils % 1.1 Absolute Neutrophils 1.6 L Absolute Lymphocytes 1.7 Absolute Monocytes 0.3 Absolute Eosinophils 0.1 Absolute Basophils 0.0 Sodium 140.3 Potassium 4.3 Chloride 103 Carbon Dioxide 28 Anion Gap 9 BUN 17 Creatinine 0.64 Est GFR ( Amer) > 60 Est GFR (Non-Af Amer) > 60 Glucose 97 Calcium 10.2 Total Bilirubin 0.4 AST 23 Alkaline Phosphatase 67 Total Protein 7.3 Albumin 4.3 03/02/19 16:30 Troponin I < 0.012 NT-Pro-B Natriuret Pep 41 Impressions: Chest X-Ray 03/02/19 16:00 IMPRESSION: Borderline cardiomegaly without pulmonary edema. Assessment and Plan - Diagnosis (1) Chest pain Qualifiers: Chest pain type: unspecified Qualified Code(s): R07.9 - Chest pain, unspecified Is this a current diagnosis for this admission?: Yes Plan: She will be admitted for serial troponins. Cardiology consult will be made tomorrow. Patient has been having her shortness of breath and chest pain for over a week now. Patient has a questionable history of a previous [place] 2 years ago. (2) Left bundle branch block (LBBB) on electrocardiogram Is this a current diagnosis for this admission?: Yes Plan: Patient had an EKG in 2017, compared to tonight there is no change, no acute findings (3) Essential hypertension Is this a current diagnosis for this admission?: Yes Plan: Patient was placed on her home meds valsartan HCTZ blood pressures well controlled tonight in the ED (4) Morbid obesity with BMI of 45.0-49.9, adult Is this a current diagnosis for this admission?: Yes Plan: Patient weighs 127 kg - Time Time Spent with patient: 35 or more minutes Medications reviewed and adjusted accordingly: Yes Anticipated discharge: Home Within: within 48 hours
[2019-03-02] MEDS ORDERED: MORPHINE SULFATE 10 MG/ML INJ IV PRN (18:57)
[2019-03-02] MEDS: OXYCODONE-ACETAMINOPHEN 5-325 MG TABLET PO SCH (19:16)
[2019-03-02 20:38] LABS: APPEARANCE,URINE CLEAR; BILIRUBIN,URINE NEGATIVE (NEGATIVE); COLOR,URINE YELLOW; GLUCOSE, URINE NEGATIVE (NEGATIVE); KETONES,URINE TRACE mg/dL (NEGATIVE); LEUKOCYTE ESTERASE,URINE NEGATIVE (NEGATIVE); NITRITE,URINE NEGATIVE (NEGATIVE); PROTEIN,URINE NEGATIVE (NEGATIVE); URINE SPECIFIC GRAVITY 1.017; UROBILINOGEN,URINE NEGATIVE mg/dL (<2.0)
[2019-03-02] MEDS: POTASSIUM CHLORIDE 20 MEQ PACKET PO SCH (21:12)
[2019-03-02] MEDS: ENOXAPARIN SODIUM INJ 120 MG/0.8 ML DISP.SYRIN SUBCUT SCH (21:13)
[2019-03-02] MEDS ORDERED: ATORVASTATIN CALCIUM 20 MG TABLET PO SCH (22:00)
[2019-03-02 23:07] LABS: CREATINE KINASE MB 0.46 ng/mL (<4.55)
[2019-03-02 23:11] LABS: TROPONIN I < 0.012 ng/mL
[2019-03-03] MEDS: OXYCODONE-ACETAMINOPHEN 5-325 MG TABLET PO SCH ×3 (00:59→11:51)
[2019-03-03 06:04] LABS: ABSOLUTE EOSINOPHILS # (AUTO) 0.1 10^3/uL (0.0-0.6); ABSOLUTE LYMPHOCYTES (AUTO) 1.6 10^3/uL (0.5-4.7); ABSOLUTE MONOCYTES (AUTO) 0.4 10^3/uL (0.1-1.4); ABSOLUTE NEUT (AUTO) 1.2 10^3/uL (1.7-8.2); BASOPHILS % (AUTO) 0.8 % (0-2); EOSINOPHILS % (AUTO) 3.9 % (0-6); HEMATOCRIT 33.6 % (36.0-47.0); HEMOGLOBIN 11.5 g/dL (12.0-15.5); MEAN CORPUSCULAR HEMOGLOBIN 33.9 pg (27.0-33.4); MEAN CORPUSCULAR HGB CONC 34.3 g/dL (32.0-36.0); MEAN CORPUSCULAR VOLUME 99 fl (80-97); MONOCYTES % (AUTO) 11.9 % (3-13); PLATELET COUNT 219 10^3/uL (150-450); RED CELL DISTRIBUTION WIDTH 13.6 % (11.5-14.0); SEGMENTED NEUTROPHILS % (AUTO) 36.4 % (42-78); TOTAL CELLS COUNTED % (AUTO) 100 %; WHITE BLOOD COUNT 3.4 10^3/uL (4.0-10.5)
[2019-03-03 06:19] LABS: ALBUMIN 3.6 g/dL (3.5-5.0); ALKALINE PHOSPHATASE 53 U/L (38-126); ANION GAP 6 (5-19); ASPARTATE AMINO TRANSFERASE 19 U/L (14-36); BILIRUBIN,DIRECT 0.1 mg/dL (0.0-0.4); BILIRUBIN,TOTAL 0.4 mg/dL (0.2-1.3); BLOOD UREA NITROGEN 15 mg/dL (7-20); CALCIUM 9.7 mg/dL (8.4-10.2); CARBON DIOXIDE 28 mmol/L (22-30); CHLORIDE 106 mmol/L (98-107); GLUCOSE 86 mg/dL (75-110); POTASSIUM 4.1 mmol/L (3.6-5.0)
[2019-03-03 06:24] LABS: CREATINE KINASE MB 0.26 ng/mL (<4.55); NT PRO BNP 60 pg/mL (5-900)
[2019-03-03 07:01] LABS: TROPONIN I < 0.012 ng/mL
[2019-03-03] MEDS: POTASSIUM CHLORIDE 20 MEQ PACKET PO SCH (09:57)
[2019-03-03 09:58] LABS: FREE T4 (FREE THYROXINE) 0.9 ng/dL (0.78-2.19)
[2019-03-03] MEDS: PREGABALIN 100 MG CAPSULE PO SCH ×2 (09:58→13:09)
[2019-03-03] MEDS ORDERED: HYDROCHLOROTHIAZIDE 25 MG TABLET PO SCH (10:00)
[2019-03-03] MEDS ORDERED: ASPIRIN 325 MG TABLET PO SCH (10:00)
[2019-03-03] MEDS ORDERED: VALSARTAN 40 MG TABLET PO SCH (10:00)
[2019-03-03] MEDS ORDERED: FAMOTIDINE 20 MG TABLET PO SCH (10:00)
--- NOTE | 2019-03-03 10:03 | Progress Note Acknowledgement ---
Progress Note Acknowledgement Progess Note Acknowledgement: I, the undersigned member of the medical staff with appropriate privileges and with supervisory authority over [Donal Finch], a dependent practice allied health professional, acknowledge that I have reviewed the progress notes entered on this patient, and in my professional judgment believe that the assessment made and/or any care evidenced was appropriate
--- NOTE | 2019-03-03 10:06 | PDOC PROGRESS REPORT ---
Subjective Progress Note for:: 03/03/19 Subjective:: None this a.m. Reason For Visit: CHEST PAIN Physical Exam Vital Signs: Temp Pulse Resp BP Pulse Ox 98.3 F 56 L 18 135/70 H 99 03/03/19 08:00 03/03/19 08:00 03/03/19 08:00 03/03/19 08:00 03/03/19 08:00 Intake & Output 03/02/19 03/03/19 03/04/19 06:59 06:59 06:59 Intake Total 240 Balance 240 Weight 127.2 kg General appearance: PRESENT: no acute distress, well-developed, well-nourished Head exam: PRESENT: atraumatic, normocephalic Eye exam: PRESENT: conjunctiva pink, EOMI, PERRLA. ABSENT: scleral icterus Ear exam: PRESENT: normal external ear exam Mouth exam: PRESENT: moist, tongue midline Neck exam: ABSENT: carotid bruit, JVD, lymphadenopathy, thyromegaly Respiratory exam: PRESENT: clear to auscultation mony. ABSENT: rales, rhonchi, wheezes Cardiovascular exam: PRESENT: RRR. ABSENT: diastolic murmur, rubs, systolic m urmur Pulses: PRESENT: normal dorsalis pedis pul Vascular exam: PRESENT: normal capillary refill GI/Abdominal exam: PRESENT: normal bowel sounds, soft. ABSENT: distended, guarding, mass, organolmegaly, rebound, tenderness Rectal exam: PRESENT: deferred Extremities exam: PRESENT: full ROM. ABSENT: calf tenderness, clubbing, pedal edema Neurological exam: PRESENT: alert, awake, oriented to person, oriented to place, oriented to time, oriented to situation, CN II-XII grossly intact. ABSENT: motor sensory deficit Psychiatric exam: PRESENT: appropriate affect, normal mood. ABSENT: homicidal ideation, suicidal ideation Skin exam: PRESENT: dry, intact, warm. ABSENT: cyanosis, rash Results Laboratory Results: 03/03/19 04:56 03/03/19 04:56 03/02/19 03/02/19 03/02/19 16:30 16:30 16:30 WBC 3.8 L RBC 3.65 L Hgb 12.2 Hct 36.2 MCV 99 H MCH 33.4 MCHC 33.7 RDW 14.0 Plt Count 253 Seg Neutrophils % 43.6 Lymphocytes % 43.8 Monocytes % 9.1 Eosinophils % 2.4 Basophils % 1.1 Absolute Neutrophils 1.6 L Absolute Lymphocytes 1.7 Absolute Monocytes 0.3 Absolute Eosinophils 0.1 Absolute Basophils 0.0 Sodium 140.3 Potassium 4.3 Chloride 103 Carbon Dioxide 28 Anion Gap 9 BUN 17 Creatinine 0.64 Est GFR ( Amer) > 60 Est GFR (Non-Af Amer) > 60 Glucose 97 Calcium 10.2 Magnesium Total Bilirubin 0.4 AST 23 Alkaline Phosphatase 67 Total Protein 7.3 Albumin 4.3 TSH 2.11 Urine Color Urine Appearance Urine pH Ur Specific [place] Urine Protein Urine Glucose (UA) Urine Ketones Urine Blood Urine Nitrite Ur Leukocyte Esterase Urine WBC (Auto) Urine RBC (Auto) 03/02/19 03/03/19 03/03/19 20:20 04:56 04:56 WBC 3.4 L RBC 3.40 L Hgb 11.5 L Hct 33.6 L MCV 99 H MCH 33.9 H MCHC 34.3 RDW 13.6 Plt Count 219 Seg Neutrophils % 36.4 L Lymphocytes % 47.0 H Monocytes % 11.9 Eosinophils % 3.9 Basophils % 0.8 Absolute Neutrophils 1.2 L Absolute Lymphocytes 1.6 Absolute Monocytes 0.4 Absolute Eosinophils 0.1 Absolute Basophils 0.0 Sodium 139.8 Potassium 4.1 Chloride 106 Carbon Dioxide 28 Anion Gap 6 BUN 15 Creatinine 0.57 Est GFR ( Amer) > 60 Est GFR (Non-Af Amer) > 60 Glucose 86 Calcium 9.7 Magnesium 2.2 Total Bilirubin 0.4 AST 19 Alkaline Phosphatase 53 Total Protein 6.0 L Albumin 3.6 TSH Urine Color YELLOW Urine Appearance CLEAR Urine pH 5.0 Ur Specific [place] 1.017 Urine Protein NEGATIVE Urine Glucose (UA) NEGATIVE Urine Ketones TRACE H Urine Blood NEGATIVE Urine Nitrite NEGATIVE Ur Leukocyte Esterase NEGATIVE Urine WBC (Auto) 0 Urine RBC (Auto) 0 03/02/19 03/02/19 03/02/19 16:30 16:30 22:30 CK-MB (CK-2) 0.27 0.46 Troponin I < 0.012 < 0.012 NT-Pro-B Natriuret Pep 41 03/03/19 04:56 CK-MB (CK-2) 0.26 Troponin I < 0.012 NT-Pro-B Natriuret Pep 60 Impressions: Chest X-Ray 03/02/19 16:00 IMPRESSION: Borderline cardiomegaly without pulmonary edema. Assessment and Plan - Diagnosis (1) Chest pain Qualifiers: Chest pain type: unspecified Qualified Code(s): R07.9 - Chest pain, unspecified Is this a current diagnosis for this admission?: Yes Plan: She will be admitted for serial troponins. Cardiology consult will be made tomorrow. Patient has been having her shortness of breath and chest pain for over a week now. Patient has a questionable history of a previous CT 2 years ago. March 03, 2019-most likely not cardiac in nature. Discussed with Dr. Guerra this morning. Most likely associated with dilated cardiomyopathy. Await records from Dr. Ken troponins negative x3 (2) Essential hypertension Is this a current diagnosis for this admission?: Yes Plan: Patient was placed on her home meds valsartan HCTZ blood pressures well controlled tonight in the ED March 03, 2019-stable at this time continue to follow. (3) Morbid obesity with BMI of 45.0-49.9, adult Is this a current diagnosis for this admission?: Yes Plan: Patient weighs 127 kg March 03, 2019-educate as to the benefits of weight loss. (4) Anemia Is this a current diagnosis for this admission?: Yes Plan: March 03, 2019-patient did receive IV fluids I suspect this is dilutional at this time continue to follow daily CBCs. - Time Time Spent with patient: 15-24 minutes - Inpatient Certification Based on my medical assessment, after consideration of the patient's comorbidities, presenting symptoms, or acuity I expect that the services needed warrant INPATIENT care.: Yes I certify that my determination is in accordance with my understanding of Medicare's requirements for reasonable and necessary INPATIENT services [42 CFR 412.3e].: Yes Medical Necessity: Other - Cardiology work-up per Mari
[2019-03-03] MEDS: ENOXAPARIN SODIUM INJ 120 MG/0.8 ML DISP.SYRIN SUBCUT SCH (10:07)
[2019-03-03 10:12] LABS: THYROID STIMULATING HORMONE 2.27 uIU/mL (0.47-4.68)
[2019-03-03 12:38] LABS: CREATINE KINASE MB 0.59 ng/mL (<4.55)
[2019-03-03 12:44] LABS: TROPONIN I < 0.012 ng/mL
[2019-03-03 12:50] VITALS: BP 109/58
[2019-03-03] MEDS ORDERED: CELECOXIB 200 MG CAPSULE PO PRN (13:18)
--- NOTE | 2019-03-03 14:40 | PDOC DISCHARGE SUMMARY ---
General - Admit/Disc Date/PCP Admission Date/Primary Care Provider: 03/02/19 18:39 SARAH JOHNSON PA-C Discharge Date: 03/03/19 - Discharge Diagnosis (1) Chest pain Is this a current diagnosis for this admission?: Yes (2) Essential hypertension Is this a current diagnosis for this admission?: Yes (3) Morbid obesity with BMI of 45.0-49.9, adult Is this a current diagnosis for this admission?: Yes (4) Anemia Is this a current diagnosis for this admission?: Yes - Additional Information Resuscitation Status: Full Code Discharge Diet: As Tolerated Discharge Activity: Activity As Tolerated Home Medications: Furosemide [Lasix 20 mg Tablet] 20 mg PO BID 07/16/14 Potassium Chloride 10 meq PO DAILYP PRN 07/16/14 Pregabalin [Lyrica 100 mg Capsule] 100 mg PO Q12 07/16/14 Celecoxib [Celebrex 200 mg Capsule] 200 mg PO BIDP PRN 03/02/19 Rosuvastatin Calcium 5 mg PO QHS 03/02/19 Sacubitril/Valsartan [Entresto 97 mg/103 mg Tablet] 1 tab PO Q12 03/02/19 Spironolactone [Aldactone 25 mg Tablet] 25 mg PO DAILY 03/02/19 Metoprolol Succinate [Toprol Xl 25 mg Tab.sr] 25 mg PO DAILY 03/03/19 History of Present Illness Patient complains of: None today History of Present Illness: SARAH MONTOYA is a 73 year old female who presented to the ER from Dr. Ken office with chest pain Hospital Course Hospital Course: Patient presented to the ER with chest pain Dr. Ken office. Patient placed in had a cardiac work-up that showed negative. Patient does have a history of dilated cardiomyopathy per Dr. Guerra. Patient be discharged home at this time follow-up with Dr. Ken as needed. This chest pain is all exertional in nature. Physical Exam Vital Signs: Temp Pulse Resp BP Pulse Ox 97.3 F 54 L 17 109/58 L 96 03/03/19 12:00 03/03/19 12:00 03/03/19 12:00 03/03/19 12:00 03/03/19 12:00 Intake & Output 03/02/19 03/03/19 03/04/19 06:59 06:59 06:59 Intake Total 240 717 Balance 240 717 Weight 127.2 kg General appearance: PRESENT: no acute distress, well-developed, well-nourished Head exam: PRESENT: atraumatic, normocephalic Eye exam: PRESENT: conjunctiva pink, EOMI, PERRLA. ABSENT: scleral icterus Ear exam: PRESENT: normal external ear exam Mouth exam: PRESENT: moist, tongue midline Neck exam: ABSENT: carotid bruit, JVD, lymphadenopathy, thyromegaly Respiratory exam: PRESENT: clear to auscultation mony. ABSENT: rales, rhonchi, wheezes Cardiovascular exam: PRESENT: RRR. ABSENT: diastolic murmur, rubs, systolic murmur Pulses: PRESENT: normal dorsalis pedis pul Vascular exam: PRESENT: normal capillary refill GI/Abdominal exam: PRESENT: normal bowel sounds, soft. ABSENT: distended, guarding, mass, organolmegaly, rebound, tenderness Rectal exam: PRESENT: deferred Extremities exam: PRESENT: full ROM. ABSENT: calf tenderness, clubbing, pedal edema Neurological exam: PRESENT: alert, awake, oriented to person, oriented to place, oriented to time, oriented to situation, CN II-XII grossly intact. ABSENT: motor sensory deficit Psychiatric exam: PRESENT: appropriate affect, normal mood. ABSENT: homicidal ideation, suicidal ideation Skin exam: PRESENT: dry, intact, warm. ABSENT: cyanosis, rash Results Laboratory Results: 03/03/19 04:56 03/03/19 04:56 03/02/19 03/02/19 03/02/19 16:30 16:30 16:30 WBC 3.8 L RBC 3.65 L Hgb 12.2 Hct 36.2 MCV 99 H MCH 33.4 MCHC 33.7 RDW 14.0 Plt Count 253 Seg Neutrophils % 43.6 Lymphocytes % 43.8 Monocytes % 9.1 Eosinophils % 2.4 Basophils % 1.1 Absolute Neutrophils 1.6 L Absolute Lymphocytes 1.7 Absolute Monocytes 0.3 Absolute Eosinophils 0.1 Absolute Basophils 0.0 Sodium 140.3 Potassium 4.3 Chloride 103 Carbon Dioxide 28 Anion Gap 9 BUN 17 Creatinine 0.64 Est GFR ( Amer) > 60 Est GFR (Non-Af Amer) > 60 Glucose 97 Calcium 10.2 Magnesium Total Bilirubin 0.4 AST 23 Alkaline Phosphatase 67 Total Protein 7.3 Albumin 4.3 TSH 2.11 Free T4 Urine Color Urine Appearance Urine pH Ur Specific [place] Urine Protein Urine Glucose (UA) Urine Ketones Urine Blood Urine Nitrite Ur Leukocyte Esterase Urine WBC (Auto) Urine RBC (Auto) 03/02/19 03/03/19 03/03/19 20:20 04:56 04:56 WBC 3.4 L RBC 3.40 L Hgb 11.5 L Hct 33.6 L MCV 99 H MCH 33.9 H MCHC 34.3 RDW 13.6 Plt Count 219 Seg Neutrophils % 36.4 L Lymphocytes % 47.0 H Monocytes % 11.9 Eosinophils % 3.9 Basophils % 0.8 Absolute Neutrophils 1.2 L Absolute Lymphocytes 1.6 Absolute Monocytes 0.4 Absolute Eosinophils 0.1 Absolute Basophils 0.0 Sodium 139.8 Potassium 4.1 Chloride 106 Carbon Dioxide 28 Anion Gap 6 BUN 15 Creatinine 0.57 Est GFR ( Amer) > 60 Est GFR (Non-Af Amer) > 60 Glucose 86 Calcium 9.7 Magnesium 2.2 Total Bilirubin 0.4 AST 19 Alkaline Phosphatase 53 Total Protein 6.0 L Albumin 3.6 TSH Free T4 Urine Color YELLOW Urine Appearance CLEAR Urine pH 5.0 Ur Specific Black 1.017 Urine Protein NEGATIVE Urine Glucose (UA) NEGATIVE Urine Ketones TRACE H Urine Blood NEGATIVE Urine Nitrite NEGATIVE Ur Leukocyte Esterase NEGATIVE Urine WBC (Auto) 0 Urine RBC (Auto) 0 03/03/19 04:56 WBC RBC Hgb Hct MCV MCH MCHC RDW Plt Count Seg Neutrophils % Lymphocytes % Monocytes % Eosinophils % Basophils % Absolute Neutrophils Absolute Lymphocytes Absolute Monocytes Absolute Eosinophils Absolute Basophils Sodium Potassium Chloride Carbon Dioxide Anion Gap BUN Creatinine Est GFR ( Amer) Est GFR (Non-Af Amer) Glucose Calcium Magnesium Total Bilirubin AST Alkaline Phosphatase Total Protein Albumin TSH 2.27 Free T4 0.90 Urine Color Urine Appearance Urine pH Ur Specific Black Urine Protein Urine Glucose (UA) Urine Ketones Urine Blood Urine Nitrite Ur Leukocyte Esterase Urine WBC (Auto) Urine RBC (Auto) 03/02/19 03/02/19 03/02/19 16:30 16:30 22:30 CK-MB (CK-2) 0.27 0.46 Troponin I < 0.012 < 0.012 NT-Pro-B Natriuret Pep 41 03/03/19 03/03/19 04:56 11:21 CK-MB (CK-2) 0.26 0.59 Troponin I < 0.012 < 0.012 NT-Pro-B Natriuret Pep 60 Impressions: Chest X-Ray 03/02/19 16:00 IMPRESSION: Borderline cardiomegaly without pulmonary edema. Qualifiers - * PATIENT BEING DISCHARGED WITH ANY OF THE FOLLOWING DIAGNOSIS: No Acute Heart Failure - Is this a Heart Failure Patient?: No Plan Time Spent: Greater than 30 Minutes
[2019-03-03] MEDS ORDERED: FUROSEMIDE 20 MG TABLET PO SCH (18:00)
--- NOTE | 2019-03-03 21:10 | PDOC CONSULTATION ---
Consultation-Blank Consultation: CARDIOLOGY consultation by Dr. Harriet Recio on 03/03/2019. REASON FOR CONSULTATION: Increasing shortness of breath into 1 week with generalized chest tightness secondary to inability to breathe normally due to shortness of breath. Patient also has orthopnea and PND. And leg edema. CONSULT REQUESTING PROVIDER: Dany Mari, PAC, [facility]. HISTORY OF PRESENT ILLNESS: Patient is a morbidly obese Afro-Monegasque female with known history of hypertension and cardiomyopathy states since the past 1 week has been having progressively increasing leg edema, PND orthopnea. Dyspnea on exertion to rest shortness of breath. There is no wheezing or cough or sputum production. The patient states she also associated with this shortness of breath she had generalized chest tightness which she attributes more due to her not being able to breathe normally, and a symptom description is not consistent with anginal or anginal equivalent chest pain. She feels much improved since she was treated with Lasix and her leg edema has now resolved. I have discussed her case with the Dr. Ken her primary billet cutter, the patient has had a normal coronaries by cardiac catheterization in 2016. She also has a dilated cardiomyopathy with ejection fraction moderately reduced. She is on Entresto. Due to bradycardia it was not possible for them to start on beta-ludwig. The patient denies any fever chills or Reiger's. There is no TIA CVA symptoms. Past Medical History Cardiac Medical History: Reports: Congestive Heart Failure, Myocardial Infarction, Hypertension Pulmonary Medical History: She has a history of documented sleep apnea, but is intolerant and hence does not wear CPAP or BiPAP. There is no history of chronic pulmonary disease. No history of pulmonary embolism. ENDOCRINE: No history of diabetes mellitus or thyroid disease. RENAL: There is no history of chronic kidney disease. No history of recurrent urinary tract infections. ALUMINUM POURER: No history of TIA CVA. No history of headaches migraines or s eizures. PSYCHIATRIC: History of depression but not needing medication. No suicidal ideation. No history of anxiety MUSCULOSKELETAL: The patient is chronic back pain and chronic arthritic pain of knees. She is on Celebrex for that chronically and also she is on Lyrica Past Surgical History Past Surgical History: Reports: Cardiac Catheterization, Hysterectomy, Orthopedic Surgery - bilateral knee replacement, Tubal Ligation Social History Smoking Status: Never Smoker Frequency of Alcohol Use: None Hx Recreational Drug Use: No Hx Prescription Drug Abuse: No Family History Family History: Is positive history of coronary artery disease and heart failure and mother. Medication/Allergy Home Medications: Celecoxib 200 mg PO BIDP PRN 07/16/14 Furosemide [Lasix 20 mg Tablet] 20 mg PO DAILYP PRN 07/16/14 Potassium Chloride 10 meq PO DAILYP PRN 07/16/14 Pregabalin [Lyrica 100 mg Capsule] 100 mg PO TID 07/16/14 Valsartan/Hydrochlorothiazide [Diovan Hct 160-12.5 mg Tab] 1 tab PO DAILY 09/26/14 Oxycodone HCl/Acetaminophen [Percocet 5-325 mg Tablet] 1 tab PO Q4H PRN #10 tablet 01/02/15 Allergies/Adverse Reactions: No Known Allergies Allergy (Verified 03/02/19 15:33) RESUSCITATION STATUS: The patient is a full code. Her sister is her surrogate healthcare decision maker. Review of Systems Constitutional: ABSENT: chills, fever(s), headache(s), weight gain, weight loss Eyes: ABSENT: visual disturbances Cardiovascular: PRESENT: chest tightness generalized, dyspnea on exertion PND and orthopnea present. No palpitations or syncope. Respiratory: ABSENT: cough, hemoptysis Gastrointestinal: ABSENT: abdominal pain, constipation, diarrhea, hematemesis, hematochezia, nausea, vomiting Neurological: ABSENT: abnormal gait, abnormal speech, confusion, dizziness, focal weakness, syncope Psychiatric: ABSENT: anxiety, depression, homidical ideation, suicidal ideation PHYSICAL EXAMINATION: The patient is morbidly obese. Although she is orthopneic she is not in any acute distress she denies any shortness of breath or leg edema. Selected Entries 03/03/19 12:00 Temperature 97.3 F Temperature Oral Source Pulse Rate 54 L Respiratory 17 Rate Blood Pressure 109/58 L [Left Upper Arm ] Blood Pressure Supine Position [Left Upper Arm] O2 Sat by Pulse 96 Oximetry Oxygen Delivery Room Air Method ( includes room air) HEAD: Is atraumatic normocephalic. EYES: Pupils equal round regular reactive to light and accommodation. Extra ocular movements are normal. There is no conjunctival pallor. There is no scleral icterus. EARS: Tympanic membranes are intact. External auditory canals are clear. NOSE: There is no deviated nasal septum. There is no inflammation nasal mucous membrane. MOUTH: Mucous membranes of mouth are moist. Tongue is moist. There is no ulcers. THROAT: There is no redness of the oropharynx. There is no exudates. NECK: Is supple. There is no JVD. Carotids are equal there is no bruits. There is no lymphadenopathy there is no goiter. There is no accessory muscles of respiration use. Trachea central. LUNGS: At present with is clear to auscultation percussion without any rhonchi rales or wheezing. HEART: S1-S2 is heard. There is no S3 gallop. There is no S4 gallop. There is systolic murmur left sternal border and the apex there is no rub. ABDOMEN: Is obese nontender. There is no hepatospleno megaly. Bowel sounds are well heard. EXTREMITIES: Femorals are very deep. Femorals are diminished there is no femoral bruits. Pulses are diminished. There is no pedal edema. There is no DVT or cellulitis. There is no calf tenderness. There is no sinus or clubbing. Capillary refill is normal. ALUMINUM POURER: The patient is conscious awake alert oriented x3 with no focal deficits. PSYCHIATRIC: Patient judgment and insight are intact her affect is normal. Labs- Entire Visit 03/02/19 03/02/19 03/02/19 16:30 16:30 16:30 WBC 3.8 L RBC 3.65 L Hgb 12.2 Hct 36.2 MCV 99 H MCH 33.4 MCHC 33.7 RDW 14.0 Plt Count 253 Seg Neutrophils % 43.6 Lymphocytes % 43.8 Monocytes % 9.1 Eosinophils % 2.4 Basophils % 1.1 Absolute Neutrophils 1.6 L Absolute Lymphocytes 1.7 Absolute Monocytes 0.3 Absolute Eosinophils 0.1 Absolute Basophils 0.0 PT INR APTT Sodium 140.3 Potassium 4.3 Chloride 103 Carbon Dioxide 28 Anion Gap 9 BUN 17 Creatinine 0.64 Est GFR ( Amer) > 60 Est GFR (Non-Af Amer) > 60 Glucose 97 Hemoglobin A1c % Calcium 10.2 Magnesium Total Bilirubin 0.4 Direct Bilirubin 0.2 Neonat Total Bilirubin Not Reportable Neonat Direct Bilirubin Not Reportable Neonat Indirect Bili Not Reportable AST 23 ALT 19 Alkaline Phosphatase 67 CK-MB (CK-2) Troponin I < 0.012 NT-Pro-B Natriuret Pep 41 Total Protein 7.3 Albumin 4.3 TSH Free T4 Urine Color Urine Appearance Urine pH Ur Specific [place] Urine Protein Urine Glucose (UA) Urine Ketones Urine Blood Urine Nitrite Urine Bilirubin Urine Urobilinogen Ur Leukocyte Esterase Urine WBC (Auto) Urine RBC (Auto) Squamous Epi Cells Auto Urine Mucus (Auto) Urine Ascorbic Acid 03/02/19 03/02/19 03/02/19 16:30 16:30 16:30 WBC RBC Hgb Hct MCV MCH MCHC RDW Plt Count Seg Neutrophils % Lymphocytes % Monocytes % Eosinophils % Basophils % Absolute Neutrophils Absolute Lymphocytes Absolute Monocytes Absolute Eosinophils Absolute Basophils PT 13.6 INR 1.04 APTT 33.7 Sodium Potassium Chloride Carbon Dioxide Anion Gap BUN Creatinine Est GFR ( Amer) Est GFR (Non-Af Amer) Glucose Hemoglobin A1c % Calcium Magnesium Total Bilirubin Direct Bilirubin Neonat Total Bilirubin Neonat Direct Bilirubin Neonat Indirect Bili AST ALT Alkaline Phosphatase CK-MB (CK-2) 0.27 Troponin I NT-Pro-B Natriuret Pep Total Protein Albumin TSH 2.11 Free T4 Urine Color Urine Appearance Urine pH Ur Specific [place] Urine Protein Urine Glucose (UA) Urine Ketones Urine Blood Urine Nitrite Urine Bilirubin Urine Urobilinogen Ur Leukocyte Esterase Urine WBC (Auto) Urine RBC (Auto) Squamous Epi Cells Auto Urine Mucus (Auto) Urine Ascorbic Acid 03/02/19 03/02/19 03/03/19 20:20 22:30 04:56 WBC 3.4 L RBC 3.40 L Hgb 11.5 L Hct 33.6 L MCV 99 H MCH 33.9 H MCHC 34.3 RDW 13.6 Plt Count 219 Seg Neutrophils % 36.4 L Lymphocytes % 47.0 H Monocytes % 11.9 Eosinophils % 3.9 Basophils % 0.8 Absolute Neutrophils 1.2 L Absolute Lymphocytes 1.6 Absolute Monocytes 0.4 Absolute Eosinophils 0.1 Absolute Basophils 0.0 PT INR APTT Sodium Potassium Chloride Carbon Dioxide Anion Gap BUN Creatinine Est GFR ( Amer) Est GFR (Non-Af Amer) Glucose Hemoglobin A1c % Calcium Magnesium Total Bilirubin Direct Bilirubin Neonat Total Bilirubin Neonat Direct Bilirubin Neonat Indirect Bili AST ALT Alkaline Phosphatase CK-MB (CK-2) 0.46 Troponin I < 0.012 NT-Pro-B Natriuret Pep Total Protein Albumin TSH Free T4 Urine Color YELLOW Urine Appearance CLEAR Urine pH 5.0 Ur Specific [place] 1.017 Urine Protein NEGATIVE Urine Glucose (UA) NEGATIVE Urine Ketones TRACE H Urine Blood NEGATIVE Urine Nitrite NEGATIVE Urine Bilirubin NEGATIVE Urine Urobilinogen NEGATIVE Ur Leukocyte Esterase NEGATIVE Urine WBC (Auto) 0 Urine RBC (Auto) 0 Squamous Epi Cells Auto 1 Urine Mucus (Auto) RARE Urine Ascorbic Acid NEGATIVE 03/03/19 03/03/19 03/03/19 04:56 04:56 04:56 WBC RBC Hgb Hct MCV MCH MCHC RDW Plt Count Seg Neutrophils % Lymphocytes % Monocytes % Eosinophils % Basophils % Absolute Neutrophils Absolute Lymphocytes Absolute Monocytes Absolute Eosinophils Absolute Basophils PT INR APTT 38.1 H Sodium 139.8 Potassium 4.1 Chloride 106 Carbon Dioxide 28 Anion Gap 6 BUN 15 Creatinine 0.57 Est GFR ( Amer) > 60 Est GFR (Non-Af Amer) > 60 Glucose 86 Hemoglobin A1c % 5.2 Calcium 9.7 Magnesium 2.2 Total Bilirubin 0.4 Direct Bilirubin 0.1 Neonat Total Bilirubin Not Reportable Neonat Direct Bilirubin Not Reportable Neonat Indirect Bili Not Reportable AST 19 ALT 16 Alkaline Phosphatase 53 CK-MB (CK-2) Troponin I NT-Pro-B Natriuret Pep Total Protein 6.0 L Albumin 3.6 TSH Free T4 Urine Color Urine Appearance Urine pH Ur Specific [place] Urine Protein Urine Glucose (UA) Urine Ketones Urine Blood Urine Nitrite Urine Bilirubin Urine Urobilinogen Ur Leukocyte Esterase Urine WBC (Auto) Urine RBC (Auto) Squamous Epi Cells Auto Urine Mucus (Auto) Urine Ascorbic Acid 03/03/19 03/03/19 03/03/19 04:56 04:56 11:21 WBC RBC Hgb Hct MCV MCH MCHC RDW Plt Count Seg Neutrophils % Lymphocytes % Monocytes % Eosinophils % Basophils % Absolute Neutrophils Absolute Lymphocytes Absolute Monocytes Absolute Eosinophils Absolute Basophils PT INR APTT Sodium Potassium Chloride Carbon Dioxide Anion Gap BUN Creatinine Est GFR ( Amer) Est GFR (Non-Af Amer) Glucose Hemoglobin A1c % Calcium Magnesium Total Bilirubin Direct Bilirubin Neonat Total Bilirubin Neonat Direct Bilirubin Neonat Indirect Bili AST ALT Alkaline Phosphatase CK-MB (CK-2) 0.26 0.59 Troponin I < 0.012 < 0.012 NT-Pro-B Natriuret Pep 60 Total Protein Albumin TSH 2.27 Free T4 0.90 Urine Color Urine Appearance Urine pH Ur Specific [place] Urine Protein Urine Glucose (UA) Urine Ketones Urine Blood Urine Nitrite Urine Bilirubin Urine Urobilinogen Ur Leukocyte Esterase Urine WBC (Auto) Urine RBC (Auto) Squamous Epi Cells Auto Urine Mucus (Auto) Urine Ascorbic Acid Chest X-Ray 03/02/19 16:00 IMPRESSION: Borderline cardiomegaly without pulmonary edema. IMPRESSION/RECOMMENDATION: 1. Acute on chronic systolic heart failure: At present compensated. In view of the patient's resting bradycardia, cannot use beta-blockers. Continue the patient on Entresto. Continue Lasix. As discussed with Dr. Ken the patient will have a repeat echo in 3 months from the prior echo, and if the ejection fraction is 35% below, then the patient would be referred by Dr. Ken for AICD placement. At that time the patient could be started on a beta-ludwig. 2. Dilated cardiomyopathy with moderately reduced LV ejection fraction. 3. Hypertension: Blood pressure well controlled. 4. History of obstructive sleep apnea: Patient not using CPAP or BiPAP. Patient encouraged to wear this. 5. Chronic pain syndrome: Patient may benefit from pain management consult as an outpatient 6. Clinically the patient has no coronary artery disease. She had a normal coronaries by cardiac catheterization in 2016. Her EKG is nondiagnostic due to left bundle branch block pattern, and her cardiac biomarkers have been negative. And on close questioning her symptoms are nonanginal. 7.Morbid obesity: Patient counseled the benefits of losing weight. Records from [place], reviewed. Also discussed with Dr. Ken the patient's clinical history and current clinical situation. The patient will follow up with him. Occasions reviewed. Management plan discussed with the attending provider on the case. Medical decision making is of moderate complexity. 60 minutes spent on this patient with more than 50% of time spent on direct patient care. Will sign off. The patient's cardiac condition is stable for the patient to be discharged home.
[2019-03-03] MEDS ORDERED: PREGABALIN 100 MG CAPSULE PO SCH (22:00)
[2019-03-03] MEDS ORDERED: SACUBITRIL/VALSARTAN 97 MG/103 MG TABLET PO SCH (22:00)
[2019-03-03] MEDS ORDERED: (PENDING PHARMACY ID) (Rosuvastatin Calcium [Rosuvastatin Calcium] 5 MG) PO SCH (22:00)
[2019-03-04] MEDS ORDERED: SPIRONOLACTONE 25 MG TABLET PO SCH (10:00)
[2019-03-04] MEDS ORDERED: METOPROLOL SUCCINATE 25 MG TAB.SR.24H PO SCH (10:00)
== END 2019-03-03 16:26 | disposition home or self-care (01) ==
LOC: ER 15:30 → INTOOBSV 18:39 → EH 18:39 → 4S 19:59
PROVIDERS: ADMIT Hospitalist; ATTEND Hospitalist
DX: R07.89 Other chest pain (principal); I11.0 Hypertensive heart disease with heart failure; I50.23 Acute on chronic systolic (congestive) heart failure; E66.01 Morbid (severe) obesity due to excess calories; I42.0 Dilated cardiomyopathy; D64.9 Anemia, unspecified; M54.9 Dorsalgia, unspecified; R06.09 Other forms of dyspnea; I25.2 Old myocardial infarction; M13.862 Other specified arthritis, left knee; M13.861 Other specified arthritis, right knee; Z68.42 Body mass index [BMI] 45.0-49.9, adult; I44.7 Left bundle-branch block, unspecified; F17.210 Nicotine dependence, cigarettes, uncomplicated; G47.33 Obstructive sleep apnea (adult) (pediatric); G89.4 Chronic pain syndrome; Z79.899 Other long term (current) drug therapy; Z79.1 Long term (current) use of non-steroidal anti-inflammatories (NSAID); Z96.653 Presence of artificial knee joint, bilateral; Z82.49 Family history of ischemic heart disease and other diseases of the circulatory system; Z91.19 Patient's noncompliance with other medical treatment and regimen
CPT/HCPCS: 93005; 99285; 36415 ×2; 84439; 82553 ×2; 84484 ×2; 83735; 84443 ×2; 85025 ×2; 85610; 85730 ×2; 80053 ×2; 81001; 83036; 83880 ×2; 71046; 93010; A9270 ×6; J1650 ×2; J3490 ×3

== ENCOUNTER 2019-10-07 10:55 | Emergency (ER) | payer MEDICARE, MEDICAID ==
--- NOTE | 2019-10-07 11:53 | ER Document Report ---
ED General - General Stated Complaint: RIGHT LEG PAIN Primary Care Provider: SARAH JOHNSON PA-C [Primary Care Provider] - Follow up as needed Mode of Arrival: Ambulatory Information source: Patient, [facility] Records Notes: 73-year-old female with hypertension, congestive heart failure, previous history of DVT presents with complaint of right lower extremity pain that started 2 days prior to arrival. Patient describes the pain as sharp, intermittent. She denies any injury, overuse. Patient is not currently on any anticoagulation. She denies fever, chills, nausea, vomiting, chest pain, shortness of breath. Was seen by her undertaker assistant today for foot care and was advised to come to the emergency department. TRAVEL OUTSIDE OF THE [place] IN LAST 30 DAYS: No - HPI Onset: Yesterday Onset/Duration: Gradual, Persistent Quality of pain: Sharp Severity: Mild Pain Level: 1 Associated symptoms: Leg swelling. denies: Body/muscle aches, Chest pain, Fever, Nausea, Vomiting, Shortness of breath, Sweating, Weakness Exacerbated by: Movement Relieved by: Denies Similar symptoms previously: Yes Recently seen / treated by doctor: Yes - Related Data Allergies/Adverse Reactions: No Known Allergies Allergy (Verified 03/02/19 15:33) Past Medical History - General Information source: Patient - Social History Smoking Status: Never Smoker Frequency of alcohol use: None Drug Abuse: None Lives with: Family Family History: Reviewed & Not Pertinent Patient has suicidal ideation: No Patient has homicidal ideation: No - Past Medical History Cardiac Medical History: Reports: Hx Congestive Heart Failure, Hx Heart Attack, Hx Hypertension Renal/ Medical History: Denies: Hx Peritoneal Dialysis Past Surgical History: Reports: Hx Cardiac Catheterization, Hx Hysterectomy, Hx Orthopedic Surgery - bilateral knee replacement, Hx Tubal Ligation - Immunizations Hx Diphtheria, Pertussis, Tetanus Vaccination: Yes Review of Systems - Review of Systems Notes: REVIEW OF SYSTEMS: CONSTITUTIONAL : Denies fever, chills, or sweats. Denies recent illness. Denies weight loss, recent hospitalizations. EENT: Denies visual changes, eye pain. Denies sore throat, oral lesions, difficulty swallowing. CARDIOVASCULAR: Denies chest pain. Denies palpitations. Denies lower extremity edema. RESPIRATORY: Denies cough. Denies shortness of breath, wheezing. GASTROINTESTINAL: Denies abdominal pain or distention. Denies nausea, vomiting, or diarrhea. Denies blood in vomitus, stools, or per rectum. Denies black, tarry stools. Denies constipation. GENITOURINARY: Denies difficulty urinating, painful urination, frequency, blood in urine, or vaginal discharge. MUSCULOSKELETAL: Denies back or neck pain or stiffness. Denies joint pain or swelling. SKIN: Denies rash, lesions or sores. HEMATOLOGIC : Denies easy bruising or bleeding. LYMPHATIC: Denies swollen glands. NEUROLOGICAL: Denies confusion or altered mental status. Denies loss of consciousness. Denies dizziness or lightheadedness. Denies headache. Denies weakness or paralysis. Denies problems difficulty with ambulation, slurred speech. Denies sensory loss, numbness, or tingling. Denies seizures. PSYCHIATRIC: Denies anxiety or stress. Denies depression, suicidal ideation, or homicidal ideation. Denies visual or auditory hallucinations. Physical Exam - Vital signs Vitals: Temp Pulse Resp BP Pulse Ox 98 F 63 16 124/64 96 10/07/19 11:04 10/07/19 11:04 10/07/19 11:04 10/07/19 11:04 10/07/19 11:04 - Notes Notes: PHYSICAL EXAMINATION: GENERAL: Well-appearing, well-nourished and in no acute distress. HEAD: Atraumatic, normocephalic. EYES: Pupils equal round and reactive to light, extraocular movements intact, conjunctiva are normal. ENT: Nares patent, oropharynx clear without exudates. Moist mucous membranes. NECK: Normal range of motion, supple without lymphadenopathy LUNGS: Breath sounds clear to auscultation bilaterally and equal. No wheezes rales or rhonchi. HEART: Regular rate and rhythm without murmurs ABDOMEN: Soft, nontender, nondistended abdomen. No guarding, no rebound. No masses appreciated. Female : deferred Musculoskeletal: Normal range of motion, 1+ pitting edema. No cyanosis. NEUROLOGICAL: Cranial nerves grossly intact. Normal speech, normal gait. Normal sensory, motor exams PSYCH: Normal mood, normal affect. SKIN: Skin color changes of the lower extremity. No warmth, erythema. Course - Re-evaluation Re-evalutation: Laboratory 10/07/19 10/07/19 12:15 12:15 WBC 3.1 L RBC 3.62 L Hgb 12.5 Hct 35.7 L MCV 99 H MCH 34.5 H MCHC 35.0 RDW 13.2 Plt Count 229 Lymph % (Auto) 44.6 [place] % (Auto) 10.5 Eos % (Auto) 2.1 Baso % (Auto) 1.1 Absolute Neuts (auto) 1.3 L Absolute Lymphs (auto) 1.4 Absolute Monos (auto) 0.3 Absolute Eos (auto) 0.1 Absolute Basos (auto) 0.0 Seg Neutrophils % 41.7 L Sodium 140.5 Potassium 3.9 Chloride 103 Carbon Dioxide 30 Anion Gap 8 BUN 18 Creatinine 0.59 Est GFR ( Amer) > 60 Est GFR (MDRD) Non-Af > 60 Glucose 120 H Calcium 9.7 Total Bilirubin 0.5 Direct Bilirubin 0.2 Neonat Total Bilirubin Not Reportable Neonat Direct Bilirubin Not Reportable Neonat Indirect Bili Not Reportable AST 21 ALT 16 Alkaline Phosphatase 63 Total Protein 7.2 Albumin 4.0 Tibia/Fibula X-Ray 10/07/19 11:49 IMPRESSION: 1. Right total knee arthroplasty without evidence of acute bony abnormality. 2. Chronic findings as above. 10/07/19 14:24 Patient presents with symptoms most consistent with an acute cellulitis. Vitals within normal limits. Patient does not meet sepsis criteria is overall very well in appearance. Exam and history and imaging are not consistent with DVT. Patient will be started on coverage for both staph and strep. At this time will discharge with return precautions and follow-up recommendations. Verbal discharge instructions given a the bedside and opportunity for questions given. Medication warnings reviewed. Patient is in agreement with this plan and has verbalized understanding of return precautions and the need for primary care follow-up in the next 24-72 hours. Patient was evaluated and treated as appropriate for the patient's presenting symptoms and complaint, with consideration of any critical or life threatening conditions that may be associated with their obtained history and exam as noted above. All results were discussed with patient. Patient provided the opportunity to ask questions, and express concerns. Patient was educated on treatments based on their presumed diagnosis as noted above. At this time we will discharge the patient with return precautions and follow-up recommendations. Verbal discharge instructions given a the bedside. Medication warnings reviewed. Patient is in agreement with this plan and has verbalized understanding of return precautions. After careful consideration I feel that that patient can be safely discharged from the emergency department, they were advised to followup with a primary care physician in 2-3 days. Dictation on this chart was performed using voice recognition software and may result in unintended grammatical, spelling, syntax or errors. 10/07/19 14:44 - Vital Signs Vital signs: Temp Pulse Resp BP Pulse Ox 98 F 63 16 124/64 96 10/07/19 11:04 10/07/19 11:04 10/07/19 11:04 10/07/19 11:04 10/07/19 11:04 - Laboratory Result Diagrams: 10/07/19 12:15 10/07/19 12:15 Laboratory results interpreted by me: 10/07/19 10/07/19 12:15 12:15 WBC 3.1 L RBC 3.62 L Hct 35.7 L MCV 99 H MCH 34.5 H Absolute Neuts (auto) 1.3 L Seg Neutrophils % 41.7 L Glucose 120 H - Diagnostic Test Radiology reviewed: Image reviewed, Reports reviewed Discharge - Discharge Clinical Impression: Right leg pain Cellulitis Qualifiers: Site of cellulitis: extremity Site of cellulitis of extremity: lower extremity Laterality: right Qualified Code(s): L03.115 - Cellulitis of right lower limb Condition: Good Disposition: HOME, SELF-CARE Instructions: Cellulitis ([facility]), Leg Pain Nonspecific ([facility]) Additional Instructions: The rash is likely due to infection of your skin. You need to take the antibiotics as prescribed. Do not stop even if the rash goes away until you have completed all the antibiotics. The area of redness was traced out here in the emergency department with a marking pen. You need to return to emergency department if the redness spreads outside of this area by more than 2 cm in any direction. You should also return if you develop fevers with temperature greater than 101, persistent vomiting, worsening pain, or have any other symptoms that are concerning to you. Follow up with your [id number] hours for further care or return to the ED IMMEDIATELY if symptoms worsen or you have any concerns. If you cannot afford to follow up with your primary care physician a list of low cost clinics have been provided at the end of your discharge papers as well. Most prescribed medications have multiple side effects. The safest thing to do is when filling your prescription speak to your pharmacist regarding possible interactions with your normal home medications and over the counter medications such as Ibuprofen, Tylenol, Benadryl. If you experience any symptoms that cause you discomfort or concern you should discontinue the medication immediately and return to the emergency room or call your primary care physician. Prescriptions: Cephalexin Monohydrate [Keflex 500 mg Capsule] 500 mg PO BID 5 Days #10 capsule Referrals: SARAH JOHNSON PA-C [Primary Care Provider] - Follow up as needed
--- NOTE | 2019-10-07 12:12 | RADIOLOGY REPORT (SQ) ---
EXAM DESCRIPTION: TIBIA FIBULA RIGHT COMPLETED DATE/TIME: 10/07/2019 12:03 pm REASON FOR STUDY: pain COMPARISON: None. NUMBER OF VIEWS: Two views. TECHNIQUE: Two radiographic images acquired of the right tibia and fibula to include the knee and an kle in at least one projection. LIMITATIONS: None. FINDINGS: MINERALIZATION: Decreased. BONES: No acute fracture dislocation. Evidence of prior total knee arthroplasty. Trace Serpiginous calcific density within the proximal tibial diaphysis, possibly bony infarct. SOFT TISSUES: Lower extremity edema with dermal calcifications. Vascular calcifications. No OTHER: Additional degenerative changes about the knee and ankle with osteophytosis. IMPRESSION: 1. Right total knee arthroplasty without evidence of acute bony abnormality. 2. Chronic findings as above. TECHNICAL DOCUMENTATION: JOB ID: [id number] 2010 [employer]- All Rights Reserved Reading location - IP/workstation name: [email or web address]
[2019-10-07 12:34] LABS: ABSOLUTE EOSINOPHILS # (AUTO) 0.1 10^3/uL (0.0-0.6); ABSOLUTE MONOCYTES (AUTO) 0.3 10^3/uL (0.1-1.4); BASOPHILS % (AUTO) 1.1 % (0-2); HEMOGLOBIN 12.5 g/dL (12.0-15.5); MEAN CORPUSCULAR HEMOGLOBIN 34.5 pg (27.0-33.4); RED BLOOD COUNT 3.62 10^6/uL (3.72-5.28); TOTAL CELLS COUNTED % (AUTO) 100 %; WHITE BLOOD COUNT 3.1 10^3/uL (4.0-10.5)
[2019-10-07 12:42] LABS: ABSOLUTE LYMPHOCYTES (AUTO) 1.4 10^3/uL (0.5-4.7); ABSOLUTE NEUT (AUTO) 1.3 10^3/uL (1.7-8.2); EOSINOPHILS % (AUTO) 2.1 % (0-6); HEMATOCRIT 35.7 % (36.0-47.0); LYMPHOCYTES % (AUTO) 44.6 % (13-45); MEAN CORPUSCULAR VOLUME 99 fl (80-97); MONOCYTES % (AUTO) 10.5 % (3-13); PLATELET COUNT 229 10^3/uL (150-450); RED CELL DISTRIBUTION WIDTH 13.2 % (11.5-14.0); SEGMENTED NEUTROPHILS % (AUTO) 41.7 % (42-78)
[2019-10-07 12:51] LABS: ALKALINE PHOSPHATASE 63 U/L (38-126); ANION GAP 8 (5-19); ASPARTATE AMINO TRANSFERASE 21 U/L (14-36); BILIRUBIN,DIRECT 0.2 mg/dL (0.0-0.4); BILIRUBIN,TOTAL 0.5 mg/dL (0.2-1.3); BLOOD UREA NITROGEN 18 mg/dL (7-20); CALCIUM 9.7 mg/dL (8.4-10.2); CARBON DIOXIDE 30 mmol/L (22-30); CHLORIDE 103 mmol/L (98-107); GLUCOSE 120 mg/dL (75-110); POTASSIUM 3.9 mmol/L (3.6-5.0); TOTAL PROTEIN 7.2 g/dL (6.3-8.2)
[2019-10-07 14:49] VITALS: BP 134/64
--- NOTE | 2019-10-07 14:59 | RADIOLOGY REPORT (SQ) ---
EXAM DESCRIPTION: VENOUS UNILATERAL LOWER COMPLETED DATE/TIME: 10/07/2019 2:48 pm REASON FOR STUDY: pain right leg / Hx clots COMPARISON: None. TECHNIQUE: Dynamic and static montejo scale and color images acquired of the left leg venous system. Se lected spectral images acquired with additional compression and augmentation maneuvers. The contralat eral common femoral vein and saphenofemoral junction were also imaged. Images stored on PACS. LIMITATIONS: None. FINDINGS: COMMON FEMORAL: Normal phasicity, compression and augmentation. No visualized echogenic ma terial on montejo scale. No defects on color images. FEMORAL: Normal compression and augmentation. No visualized echogenic material on montejo scale. No defe cts on color images. POPLITEAL: Normal compression, augmentation. No visualized echogenic material on montejo scale. No defec ts on color images. CALF VESSELS: Normal compression, augmentation. No visualized echogenic material on montejo scale. No de fects on color images. GSV and SSV: Normal compression, augmentation. No visualized echogenic material on montejo scale. No def ects on color images. ANY DEEP VENOUS INSUFFICIENCY: Not evaluated. ANY EVIDENCE OF POPLITEAL CYST: No. OTHER: No other significant finding. CONTRALATERAL COMMON FEMORAL VEIN AND SAPHENOFEMORAL JUNCTION: Normal phasicity, compression and augmentation. No visualized echogenic material on montejo scale. No de fects on color images. IMPRESSION: NO EVIDENCE OF DVT OR SVT IN THE LEFT LEG. TECHNICAL DOCUMENTATION: JOB ID: [id number] 2010 [email or web address]- All Rights Reserved Reading location - IP/workstation name: [email or web address]
== END 2019-10-07 14:48 | disposition home or self-care (01) ==
LOC: ER 10:55
DX: L03.115 Cellulitis of right lower limb (principal); M79.604 Pain in right leg; M79.89 Other specified soft tissue disorders; I50.9 Heart failure, unspecified; I11.0 Hypertensive heart disease with heart failure
CPT/HCPCS: 36415; 80053; 85025; 93971; 99284

== ENCOUNTER → 2020-05-23 | Outpatient (CLI) | payer MEDICAID, MEDICARE ==
--- NOTE | 2020-05-23 09:42 | WOMENS IMAGING REPORT ---
EXAM DESCRIPTION: 3D SCREENING MAMMO BILAT IMAGES COMPLETED DATE/TIME: 05/23/2020 9:27 am REASON FOR STUDY: Z12.31 ENCOUNTER FOR SCREENING MAMMOGRAM FOR MALIGNANT NEOPLASM OF BREAST Z12.31 ENCNTR SCREEN MAMMOGRAM FOR MALIGNANT NEOPLASM OF ERROL COMPARISON: 11/24/2018 and 11/02/2017. EXAM PARAMETERS: Standard craniocaudal and mediolateral oblique views of each breast recorded using digital acquisition and breast tomosynthesis. Read with the assistance of CAD. .[facility] - [employer] Version 9.2 LIMITATIONS: None. FINDINGS: Findings present which are benign by mammographic criteria. No suspicious masses, calcific ations or architectural distortion. Pertinent benign findings: Benign calcifications. Biopsy changes in the right breast. Benign mammographic findings may include one or more of the following: Smooth masses, popcorn/rim/coa rse calcifications, asymmetries, post-procedure changes, and lesions with long-standing stability. IMPRESSION: BENIGN MAMMOGRAPHIC FINDINGS. BIRADS 2 BREAST DENSITY: a. The breasts are almost entirely fatty. BIRAD: ASSESSMENT: 2 BENIGN FINDING(S) RECOMMENDATION: ROUTINE SCREENING COMMENT: The patient has been notified of the results by letter per MQSA requirements. Additional no tification policies are in place for contacting patient with suspicious or incomplete findings. Quality ID #225: The [employer] recommends an annual screening mammogram for women aged 40 years or over. This facility utilizes a reminder system to ensure that all patients receive reminder letters, and/or direct phone calls for appointments. This includes reminders for routine scr eening mammograms, diagnostic mammograms, or other Breast Imaging Interventions when appropriate. Th is patient will be placed in the appropriate reminder system. TECHNICAL DOCUMENTATION: FINDING NUMBER: (1) ASSESSMENT: (1) JOB ID: [id number] 2010 [employer]- All Rights Reserved Reading location - IP/workstation name: [email or web address]
== END ==
LOC: WI 08:46
PROVIDERS: ATTEND Physician Assistant
DX: Z12.31 Encounter for screening mammogram for malignant neoplasm of breast (principal)
CPT/HCPCS: 77063; 77067